=== PATIENT | male | born 1955 | race Caucasian/White ===

== ENCOUNTER 2017-12-13 09:39 | Outpatient (CLI) | payer BC, SELFPAY ==
--- NOTE | 2017-12-13 09:35 | DI.RAD_ITS ---
SYMPTOMS/DIAGNOSIS: PAIN LEFT HIP AND PELVIS: Two views. Comparison CT is 10/27/07. In the right hip there is moderate joint space narrowing and mild acetabular spurring. In the left hip there is moderate narrowing of the superior joint space. Spurring is seen at the acetabulum and the femoral head. No acute fracture or dislocation is seen. There are clips seen inferior to the pelvis likely reflecting prior vasectomy. The soft tissues are otherwise unremarkable. 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
== END 2017-12-13 09:59 ==
PROVIDERS: PCP Family Medicine; Visit Provider Orthopaedic Surgery
DX: M25.551 Pain in right hip (principal); M25.552 Pain in left hip; M16.0 Bilateral primary osteoarthritis of hip
CPT/HCPCS: 73502

== ENCOUNTER 2018-09-05 07:12 | Outpatient (CLI) | payer BC, SELFPAY ==
[2018-09-05 08:54] LABS: Anion Gap 9.2 mmol/L (3-11); BUN 19 mg/dL (7-18); CO2 29.8 mmol/L (21.0-32.0); CREATININE 1.15 mg/dL (0.70-1.30); Calcium 9.1 mg/dL (8.5-10.1); Chloride 102 mmol/L (98-107); Glucose 99 mg/dL (70-100); Potassium 3.6 mmol/L (3.5-5.1); Sodium 141 mmol/L (136-145)
== END 2018-09-05 07:32 ==
PROVIDERS: PCP Family Medicine; Visit Provider Family Medicine
DX: I10 Essential (primary) hypertension (principal)
CPT/HCPCS: 36415; 80048

== ENCOUNTER 2019-05-02 06:55 | Day surgery (SDC) | payer BC, SELFPAY ==
[2019-05-02 07:09] VITALS: BP 142/90; PULSE 73; RESP 16; TEMP 36.2; O2SAT 98
[2019-05-02] MEDS: Lactated Ringers 1,000 ML 80 ML IV (07:31)
--- NOTE | 2019-05-02 07:37 | HPE_ITS ---
Date of service: 05/02/19 Time of Service: 07:37 Assessment and Plan Assessment and plan (1) Sessile colonic polyp: Status: Acute Assessment and plan: I advised colonoscopy. The procedure was described including the risks of perforation with need for surgery or bleeding. Prep instructions discussed. Patient agrees to proceed. If indicated, internal hemorrhoid banding can be done. The risks of pain, bleeding, recurrence discussed. He agrees to proceed. (2) Hemorrhoids: Status: Acute History of Present Illness Narrative: 64 y/o male with history of HTN and hemorrhoids presents for colonoscopy. His last screening was in 2017, which was remarkable for sessile serrated and tubular adenomatous polyps. He denies a family history of colon cancer. He denies any changes in bowel habits. However of note he describes long standing hemorrhoids, which frequently bleed following BMs. Denies black tarry stools, abdominal pain, diarrhea or constipation. He denies constitutional symptoms. Denies use of marijuana or any other recreational or illegal drugs. He denies chest pain, palpitations, dyspnea or dyspnea with exertion. He walks and hikes 2-4 miles several times per week. He denies prior history or family history of adverse reactions or complications with anesthesia. Review of Systems All systems reviewed & are unremarkable except as noted in HPI and below PFSH Medical History Essential hypertension (Acute) Reza hematuria (Inactive) Hemorrhoids (Acute) intermittent, not currently active Prolapsed lumbosacral intervertebral disc (Inactive 01/16/13) Sessile colonic polyp (Acute 03/17/16) Surgical History BACK DISC SURGERY Colonoscopy - IV Sedation (03/17/16) History of spinal surgery (Inactive) Family History Mother Essential hypertension Breast cancer Father , AGE 42 No problems noted. Sister Essential hypertension Brother Essential hypertension Alcohol abuse Maternal Grandfather Essential hypertension Heart disease Stroke Maternal Grandmother Stroke Son Essential hypertension Daughter No problems noted. Uncle Colon cancer Uncle Colon cancer Uncle , 1960'S Colon cancer Son No problems noted. Social History Smoking/Tobacco Use Status: Former Tobacco Use Quit Date: 03/12/77 Second Hand Exposure: Yes Alcohol Intake: current Alcohol Intake frequency: a few times a month Alcohol type: beer Drug use: Never Substance use type: does not use Caregiver/Support person: No Household members: spouse Housing: house Communication Needs: None Pets and animals: No Sexually active: Yes Do you think of yourself as: straight/heterosexual Current gender identity: male What is your relationship status?: How often do you talk on the phone with friends or family?: three or more times per week How often do you get together with friends or relatives?: three or more times per week How often do you attend sabianism or protestant services?: 1-3 times per year Do you belong to any clubs or organized social groups?: yes Panel score (0-1 are the most socially isolated patients): 3 What type of physical activity do you participate in: walking Duration: 45-60 minutes/day Frequency: 3-4 times per week Jessica/Episcopal: [employer] Special jessica needs: No Seatbelt use: always Helmet use: Yes Helmet use: sometimes 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 Do you feel safe at home: Yes Do you feel safe in your relationship?: Yes Meds Home Medications and Allergies Home Medications Medication Instructions Recorded Confirmed Type lisinopril 10 mg tablet 10 mg PO DAILY #90 tab-cap 11/14/18 05/02/19 Rx meloxicam 15 mg tablet 15 mg PO DAILY #30 tab 03/13/19 05/02/19 Rx bisacodyl 5 mg tablet,delayed 5 mg PO ONCE #4 tab 03/28/19 05/02/19 Rx release polyethylene glycol 3350 17 238 g PO ONCE #238 gm 03/28/19 05/02/19 Rx gram/dose oral powder chlorthalidone 25 mg tablet 25 mg PO DAILY #90 tab-cap 04/08/19 05/02/19 Rx Allergies Allergy/AdvReac Type Severity Reaction Status Date / Time No Known Allergies Allergy Verified 05/01/19 08:03 Exam Const General: healthy appearing and not in acute distress Nutritional Appearance: well nourished Orientation: oriented x3 HENMT Head: normal to inspection Eyes Sclera: sclerae normal Pupils: PERRL Neck Neck: no lymphadenopathy Chest Breast inspection: normal inspection of the axillae Resp Effort & Inspection: normal respiratory effort Auscultation: clear to auscultation bilaterally and no wheezes Cardio Rate: regular rate Rhythm: regular rhythm GI Inspection: non-distended Palpation: soft, no hepatosplenomegaly, no hernias and nontender Skin General skin exam: no rashes or lesions noted Neuro General: alert Cognition: normal cognition Extrem General: normal to inspection Psych Affect: normal affect Attitude: cooperative Results Last Vital Signs Temp 97.2 F L 05/02/19 07:09 Pulse 73 05/02/19 07:09 Resp 16 05/02/19 07:09 BP 142/90 H 05/02/19 07:09 Pulse Ox 98 05/02/19 07:09
--- NOTE | 2019-05-02 07:52 | W.PM.DSUDISC ---
Discharge Plan Disposition Patient Disposition: HOME Condition: Good Discharge Details Reason For Visit: Colonoscopy Attending Provider: Patricia Dunbar Primary Care Provider: Thaddeus Carrion Home Meds and New Rx's Prescriptions: Continued lisinopril 10 mg tablet 10 mg PO DAILY Qty: 90 RF: 4 meloxicam 15 mg tablet 15 mg PO DAILY Qty: 30 RF: 3 chlorthalidone 25 mg tablet 25 mg PO DAILY Qty: 90 RF: 4 Discontinued polyethylene glycol 3350 17 gram/dose powder 238 g PO ONCE Qty: 238 RF: 0 bisacodyl [Dulcolax (bisacodyl)] 5 mg tablet,delayed release (DR/EC) 5 mg PO ONCE Qty: 4 RF: 0 Discharge Instructions Additional Instructions: Findings: No polyps were found. Internal hemorrhoids are present but not prominent enough to band at this time. Follow up: Plan for colonoscopy in 5 years due to the presence of polyps on your prior colonoscopy. Please call if you develop: fevers >101.5 Nausea or Vomiting Abdominal pain that is not transient DAY SURGERY UNIT POST COLONOSCOPY INSTRUCTIONS 1. Because there will be medication in your system for the next 24 hours, you may feel a little sleepy. Your coordination will be affected. Therefore: a. Do not drive or operate dangerous equipment for 24 hours. b. Do not drink alcohol beverages for 24 hours (not even beer). c. Plan to go home and rest for the day. 2. Generally there are no restrictions on your activity after a day or so has gone by, but you may feel a bit fatigued for a few days. 3 After you arrive home you may have a light meal and return to a normal diet as you can tolerate it without feeling sick to your stomach. 4. After surgery, you may feel pain or discomfort. This should be only transient, but if it persists please contact your doctor. 5. If there are any questions regarding the findings of your procedure, please feel free to contact your doctor. 6. If you are unable to contact your doctor with a problem, contact the hospital at [phone]. 7. Continue all your regular medications unless directed otherwise. I understand the above instructions and have no questions. Signature of Patient or Responsible Adult Escort Date/Time Name of Responsible Adult Escort Signature of Nurse Date/Time Activity:: Activity as Tolerated Diet:: As Tolerated Discharge Orders Discharge Orders: Discharge Order (Routine); Ordered 05/02/19 Ordered By: Patricia Dunbar DS: Diagnosis Discharge Diagnosis (1) Hemorrhoids: Status: Acute (2) Normal colonoscopy: Status: Acute
[2019-05-02 09:52] VITALS: BP 132/78; PULSE 59; RESP 17; TEMP 36.2; O2SAT 98
--- NOTE | 2019-05-02 10:44 | COLE_ITS ---
DATE OF PROCEDURE May 02, 2019 PREOPERATIVE DIAGNOSES 1. History of colon polyps. 2. Bleeding hemorrhoids. POSTOPERATIVE DIAGNOSES 1. Normal colon. 2. Internal hemorrhoids. PROCEDURE Colonoscopy. SURGEON Patricia Dunbar M.D. ANESTHESIA General. INDICATIONS This is a 64-year-old man, whose last colonoscopy in 2017 showed colon polyps. He presents for routin e followup. He has had bleeding from internal hemorrhoids in the past, but currently is asymptomatic. He will go months without symptoms and then have some bleeding for a few days in a row. We discussed possible internal hemorrhoid banding prior to the procedure. Due to his upcoming travel, we agreed t hat I would only band them if they were very prominent. PROCEDURE DESCRIPTION He was placed in the left Holt position. Propofol was titrated to sedation. Digital rectal examinatio n revealed no masses. The scope was inserted and retroflexed. He did have some mildly prominent inter nal hemorrhoids, but nothing that required banding today. The scope was straightened and then advance d to the cecum without difficulty. The ileocecal valve was briefly intubated to reveal a normal dist al ileum. His prep was excellent. The scope was slowly withdrawn with no abnormalities seen within t he ascending, transverse, descending, sigmoid colon or rectum. He tolerated the procedure well and wa s stable to Recovery. With is history of polyps. He will need a colonoscopy again in five years.
== END 2019-05-02 10:10 | disposition home or self-care (01) ==
PROVIDERS: PCP Family Medicine; Visit Provider Surgery
PROC: 0DJD8ZZ Inspection of Lower Intestinal Tract, Via Natural or Artificial Opening Endoscopic (ICD-10-PCS; CPT 45378; principal; 2019-05-02 08:15)
DX: Z12.11 Encounter for screening for malignant neoplasm of colon (principal); Z86.010 Personal history of colon polyps; K64.0 First degree hemorrhoids; I10 Essential (primary) hypertension
CPT/HCPCS: 45378; NC; J2250; J2704; J3010

== ENCOUNTER 2019-10-06 10:51 | Outpatient (CLI) | payer BC, SELFPAY ==
--- NOTE | 2019-10-06 09:15 | DI.RAD_ITS ---
EXAM: XR HIP LT COMPLETE AP PELVIS INDICATION: f/u L hip DJD. COMPARISON: CR XR hip LT complete AP pelvis from 12/13/2017 TECHNIQUE: 2D digital imaging was performed. FINDINGS: There is moderate narrowing of both hip joint spaces, left greater than right. There is prominent s purring at the left acetabulum and margin of the left femoral head. Milder spurring is seen involvin g the right hip. There is also some spurring at both greater trochanters. IMPRESSION: Moderate to severe degenerative changes. DATA REPOSITORY: RADIATION DOSE DELIVERED:
== END 2019-10-06 11:11 ==
PROVIDERS: PCP Family Medicine; Referring Provider Family Medicine; Visit Provider Student in an Organized Health Care Education/Training Program
DX: M16.12 Unilateral primary osteoarthritis, left hip (principal)
CPT/HCPCS: 73502

== ENCOUNTER 2019-10-13 02:01 | Outpatient (CLI) | payer BC, SELFPAY ==
[2019-10-13 10:14] LABS: HCT 48.1 % (40.0-50.0); HGB 16.3 g/dL (13.5-17.5); MCH 31.8 pg (27.0-33.0); MCHC 33.9 % (32.0-36.0); MCV 93.8 fL (80-95); MPV 9.6 fL (8.0-11.0); Platelet Count 234 10^3/uL (130-400); RBC 5.13 10^6/uL (4.36-5.78); RDW-SD 44.9 fL
[2019-10-13 11:02] LABS: Anion Gap 6.4 mmol/L (3-11); BUN 20 mg/dL (7-18); CO2 31.6 mmol/L (21.0-32.0); CREATININE 1.13 mg/dL (0.70-1.30); Chloride 104 mmol/L (98-107); Glucose 96 mg/dL (74-106); Potassium 4.1 mmol/L (3.5-5.1); Sodium 142 mmol/L (136-145)
== END 2019-10-13 02:21 ==
PROVIDERS: PCP Family Medicine; Visit Provider Student in an Organized Health Care Education/Training Program
DX: M16.12 Unilateral primary osteoarthritis, left hip (principal)
CPT/HCPCS: 36415; 80048; 85027; 86850; 86900; 86901

== ENCOUNTER 2019-10-13 08:00 | Outpatient (CLI) | payer BC, SELFPAY ==
[2019-10-14 20:50] LABS: COVID-19 RT-PCR Result NEGATIVE (Negative)
== END 2019-10-13 08:20 ==
PROVIDERS: PCP Family Medicine; Visit Provider Student in an Organized Health Care Education/Training Program
DX: M16.12 Unilateral primary osteoarthritis, left hip (principal)
CPT/HCPCS: U0003

== ENCOUNTER 2019-10-16 10:14 | Observation (INO) | payer BC, SELFPAY ==
[2019-10-16] VITALS (10 sets, daily range): BP systolic 116–166; BP diastolic 72–95; PULSE 52–62; RESP 12–18; TEMP 35.9–36.6; O2SAT 97–100
[2019-10-16] MEDS: Lactated Ringers 1,000 ML 80 ML IV ×2 (11:18→15:42)
[2019-10-16] MEDS: Acetaminophen 500 MG TAB 1000 MG PO (11:22)
[2019-10-16] MEDS: Celecoxib 200 MG CAP 400 MG PO (11:22)
[2019-10-16] MEDS: ceFAZolin 2 GM/50 ML BAG IVPB (12:00)
--- NOTE | 2019-10-16 12:05 | W.PM.DS.N ---
Date of service: 10/16/19 Time of Service: 18:16 DS: Diagnosis Discharge Diagnosis (1) Osteoarthritis of left hip: Status: Acute Discharge Plan Disposition Patient Disposition: HOME Condition: Good Discharge Details Reason For Visit: HIP TOTAL Admit Date/Time: 10/16/19 10:14 Admit Provider: Aayush Phillips Attending Provider: Aayush Phillips Primary Care Provider: Thaddeus Carrion Hospital Course Hospital Course: Patient was admitted to the medical/surgical floor following the procedure. The surgery was tolerated well without any notable medical, surgical, or anesthetic complications. Mobilization began postoperatively. He was voiding spontaneously. Vitals were stable. Physical therapy worked with the patient and was cleared for discharge home. No acute medical issues. Pain was controlled on oral regimen. Home Meds and New Rx's Prescriptions: New celecoxib 200 mg capsule 200 mg PO BID PRN (Reason: pain) Qty: 60 RF: 1 aspirin 81 mg tablet,delayed release (DR/EC) 81 mg PO BID Qty: 60 RF: 0 acetaminophen 500 mg tablet 1,000 mg PO Q8H PRN (Reason: pain) Qty: 90 RF: 3 pantoprazole 40 mg tablet,delayed release (DR/EC) 40 mg PO DAILY Qty: 30 RF: 0 docusate sodium [Colace] 100 mg capsule 100 mg PO BID PRNQty: 10 RF: 0 oxycodone 5 mg tablet 5 mg PO Q4H Qty: 15 RF: 0 Continued lisinopril 10 mg tablet 10 mg PO DAILY Qty: 90 RF: 4 chlorthalidone 25 mg tablet 25 mg PO DAILY Qty: 90 RF: 4 Discontinued meloxicam 15 mg tablet 15 mg PO DAILY Qty: 30 RF: 3 Discharge Instructions Additional Instructions: Dr. Phillips's Total Hip Discharge Instructions Activity: The most important activity is to walk. You should try to take short walks a few times a day. You have no restrictions on movement or positioning, but do not try to force what you do. You will find some stiffness and weakness with hip flexion (lifting your knee). Do not try to strengthen this too early, continue to practice walking and stairs and this will come. - Outpatient physical therapy can be helpful to help return you to a normal gait and improve your flexibility and strength. This can start around 2 weeks. For most patients, it?s not necessary. Usually this is determined at the time of discharge or at the first post-operative visit. - You should wear the AVTAR hose on both legs for 2 weeks. You may remove those at night. These prevent blood pooling and swelling. Dressing: Keep the surgical dressing in place for at least one week, although it may stay in place untill follow-up. It may get wet after 3 days but avoid soaking the dressing. If it gets wet, just lightly pat dry. Most people prefer to cover the dressing with some ClingWrap, Saran Wrap, to keep it dry. After the first week it may be removed if desired and then replaced with light gauze and tape or nothing. It is important to always keep some gauze or the dressing between skin folds, especially when you are sitting, so the incision is not folded over on itself at the belly fold. Medications: - You should take Tylenol and an anti-inflammatory Celebrex as your primary pain control medications - You have been prescribed a stronger pain medication Oxycodone for breakthrough pain, take as needed as prescribed. - You have also been prescribed a stomach acid reduction agent Pantoprozole to help reduce stomach acid and reflux. - You will be taking Aspirin 81mg twice a day for DVT prevention unless instructed otherwise. - If you have constipation you should take Colace or Miralax (both [id number]). It takes most people 3-4 days to have a bowel movement. Follow-up: 2 weeks. If you have any acute concerns or questions, please do not hesitate to contact the office at [phone]. You may contact Dr. Phillips with any questions after hours through the hospital at [phone] or on his cell phone at [phone]. Stand Alone Forms: Nursing Discharge Form Referrals: Aayush Phillips MD [ [facility] STAFF PHYSICIAN] - 10/30/19 11:00 am Activity:: Activity as Tolerated Equipment/Supplies:: Walker Diet:: As Tolerated Discharge Orders Discharge Orders: Discharge Order (Routine); Ordered 10/16/19 Ordered By: Aayush Phillips DS: Summary Status at Discharge Functional status at discharge: uses cane/walker Overall status at discharge: patient is progressing back to baseline Mental Status: mental status grossly normal Speech and Movement: speech and movement normal Mood: congruent mood Affect: normal affect Exam Psych Mental Status: mental status grossly normal Speech and Movement: speech and movement normal Mood: congruent mood Affect: normal affect DS: Data Vitals/I&O Vitals and I&O: Vital Signs Temperature 36.6 C 10/16/19 10:47 Pulse 62 10/16/19 10:47 Pulse Rhythm Regular 10/16/19 10:47 Respiratory Rate 16 10/16/19 10:47 Respiratory Effort 10/16/19 10:47 Respiratory Depth Normal 10/16/19 10:47 Respiratory Pattern Normal 10/16/19 10:47 Blood Pressure 138/78 10/16/19 10:47 Pulse Oximetry 97 10/16/19 10:47 Oxygen Delivery Method Room Air 10/16/19 10:47 Oxygen Flow Rate 0 10/16/19 10:47 Pain Level 1 10/16/19 10:47 Intake & Output 10/15/19 10/16/19 10/16/19 23:59 11:59 23:59 Weight 93.2 kg [facility] Medical History Essential hypertension (Acute) Reza hematuria (Inactive) Hemorrhoids (Acute) intermittent, not currently active Prolapsed lumbosacral intervertebral disc (Inactive 01/16/13) Sessile colonic polyp (Acute 03/17/16) Surgical History BACK DISC SURGERY Colonoscopy - IV Sedation (03/17/16) History of spinal surgery (Inactive) Family History Mother Essential hypertension Breast cancer Father , AGE 42 No problems noted. Sister Essential hypertension Brother Essential hypertension Alcohol abuse Maternal Grandfather Essential hypertension Heart disease Stroke Maternal Grandmother Stroke Son Essential hypertension Daughter No problems noted. Uncle Colon cancer Uncle Colon cancer Uncle , 1960'S Colon cancer Son No problems noted. Social History Smoking/Tobacco Use Status: Former Tobacco Use Quit Date: 03/12/77 Second Hand Exposure: Yes Alcohol Intake: current Alcohol Intake frequency: a few times a month Alcohol type: beer Drug use: Never Substance use type: does not use Caregiver/Support person: No Household members: spouse Housing: house Communication Needs: None Pets and animals: No Sexually active: Yes Do you think of yourself as: straight/heterosexual Current gender identity: male What is your relationship status?: How often do you talk on the phone with friends or family?: three or more times per week How often do you get together with friends or relatives?: three or more times per week How often do you attend gnosticism or mandaen services?: 1-3 times per year Do you belong to any clubs or organized social groups?: yes Panel score (0-1 are the most socially isolated patients): 3 What type of physical activity do you participate in: walking Duration: 45-60 minutes/day Frequency: 3-4 times per week Jessica/Quaker: [employer] Special jessica needs: No Seatbelt use: always Helmet use: Yes Helmet use: sometimes 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
[2019-10-16] MEDS: Bupivacaine 0.25% Pres-Free 30 ML VIAL (12:43)
[2019-10-16] MEDS: Ketorolac 30 MG/ML VIAL (12:43)
--- NOTE | 2019-10-16 13:45 | DI.RAD_ITS ---
EXAM: XR HIP LT IN OR CLINICAL HISTORY: Anterior Left hip TECHNIQUE: 2D and realtime digital imaging was performed. Fluoroscopy was provided in the OR COMPARISON: No exams were available for comparison FINDINGS: C-arm fluoroscopy was utilized by Dr. Phillips during placement total hip joint replacement on the le ft. Hard copies show the components to be well seated. Fluoro time, 76 seconds. IMPRESSION: RADIATION DOSE DELIVERED: Total DLP
--- NOTE | 2019-10-16 13:58 | ROE_ITS ---
Date of service: 10/16/19 Time of Service: 13:58 Operative Note Operative Note DATE OF PROCEDURE: 10/16/19 PRE-OP DIAGNOSIS: Left Hip Osteoarthritis POST-OP DIAGNOSIS: same PROCEDURE: Left Anterior Total Hip Arthroplasty SURGEON: Aayush Phillips IMPREGNATING MACHINE OPERATOR: Ga Dominguez ANESTHESIA: spinal ESTIMATED BLOOD LOSS: 250 PATHOLOGY: none sent TOURNIQUET TIME: 0 COMPLICATIONS: None Patient was transported to: PACU Patient's condition: stable Implants: 1. Depuy [place] Acetabular Component, 56mm 2. Depuy Acetabular Liner, 99y78ic 3. Depuy Corail High Offset Femoral Stem, Size 11 4. Depuy Altrx Ceramic Femoral Head, Size 32+5mm Indications: I have seen Joshua in clinic for symptoms of hip arthritis, confirmed with radiographic findings. Joshua has exhausted nonoperative methods and was having significant limitations in daily function and desired better function and less pain. I discussed the technical details of a hip replacement. I explained the risks of the procedure to include, but not limited to, bleeding, infection, pain, stiffness, fracture, damage to nerves and vessels, damage to muscles and tendons, loosening, instability, leg length inequality, need for repeat procedure, blood clot and cardiopulmonary demise. Despite these risks, Joshua elected to proceed. Findings: There was significant signs of arthritis throughout the hip. Procedure Description: Joshua was greeted in the preoperative holding area where the correct side was identified and marked. The consent was reviewed with the patient and signed. The history and physical was updated. All questions were answered. Joshua was taken back to the operating room. A spinal anesthestic was then administered. The patient was placed into the supine position on the operating room table. The patient was then positioned onto the ARCH table. Both feet were wrapped with Webrill cotton wrap along with Coban. The feet were placed in specialized boots for the ARCH table, well seated within the boot and secured. SCDs were applied. The patient was then slid down onto a peroneal post and the nonoperative leg was secured in a leg hodges attached to the table. The operative side was placed into the ARCH table attachment and bed height and positioning was secured. A preoperative AP pelvis was obtained to serve as a reference for determining leg lengths. Prophylactic antibiotics in the form o f Cefazolin were administered. 1g of Tranxemic Acid was given intravenously within 30 minutes of incision. The left leg was then prepped with Chloraprep and draped in a standard fashion. A second prep with Chloraprep was performed prior to placement of a shower-curtain type drape with Iodine impregnated skin protection. A timeout to confirm correct identity, side and site, procedure, allergies, anesthesia, and medical concerns was performed. An obliquely oriented incision was made starting lateral to the ASIS and running distal over the Tensor Fascia Radha (TFL) muscle belly toward the fibular head, approximately 10cm. The skin and soft tissue was dissected sharply, through Shanae?s fascia, and to the fascia of the TFL. With the fascia and superior border of the IT band identified, the fascia was incised with a new knife just above any perforators from the IT band. The TFL muscle belly was bluntly dissected away from the fascia and moved laterally. The fat between TFL and rectus was identified to ensure the dissection was not within the TFL. Blunt dissection created space between abductors and the capsule and retractor was placed over the lateral femoral neck. The fibers of the rectus femoris tendon were identified and these were freed from the anterior capsule. A second cobra retractor was placed around the medial femoral neck. The TFL was further retracted laterally to show the deep fascia. Careful dissection through this layer identified three main crossing vessels of the lateral femoral circumflex. These were cauterized in multiple locations and then cut without any noticeable bleeding. The TFL was further released bluntly from the deep fascia to expose anterior hip capsule and fat The Tony orthopaedic retractor was then placed beneath the TFL and against sartorius and medial soft tissues to protect and retract the soft tissues. A T-capsulotomy was then performed starting at the superior lateral acetabulum and moving distally to the intertrochanteric ridge. These capsular flaps were tagged with a No. 1 Ethibond and elevated from within. The capsular flaps were released to the shoulder of the lateral neck and to the lesser trochanter to g kennedy excellent visualization of the proximal femur. A neck osteotomy was performed using an oscillating saw based on preoperative templates. This cut started in the shoulder and of the lateral neck and exited medially. The saw was at all times directed medially to avoid injury to the greater trochanter. 6cm of traction was applied to the leg and the osteotomy opened. The femoral head was removed with a corkscrew, making sure to protect the TFL on its exit. This was measured on the back table to determing the starting reamer size. Portions of the rectus obscuring visualization were mini mary lou elevated off the superior acetabulum. An anterior retractor was placed over the anterior wall between capsule and labrum and attached to the Gripper retraction system. A posterior retractor was placed similarly. This provided excellent visualization. The contents of the cotyloid fossa were removed with electrocautery and the labrum was removed with a knife. There was a notable floor osteophyte. There was significant chondromalacia of the superior acetabulum. Acetabular reaming began with a 52mm reamer. This first reaming was directed anterior to posterior and medial to get down to the true floor. This was inspected and reamed until the true floor was reached. The anterior retractor was then released and entry and exit was provided by traction on the capsular flaps. I then reamed sequentially up to a 56mm reamer where good fit was obtained. The larger reamers were oriented based on anatomical reference of the anterior and lateral pedroza to ensure proper abduction and anteversion. Positioning and size was confirmed with the fluoroscopy. A 56mm Depuy [place] acetabular component was selected. The acetabulum was reamed around the periphery with the selected acetabular size to prevent a rim fit. The deep tissues were irrigated. The acetabular component was then impacted in a position of about 40-45 degrees of abduction and 15-20 degrees of anteversion, using the patient?s anatomy as the ultimate landmark. Fluoroscopy was used to confirm this. There was excellent propagation worker of the acetabular component and the inserting handle was removed. The acetabular liner, Depuy [id number] polyethylene liner, was inserted and lined up with the tines of the acetabular component. There was no soft tissue interposition. The liner was then impacted into position and confirmed to be well-seated. A portion of the kash-articular cocktail was then injected around the acetabulum into the capsule and periosteum. This cocktail consisted of 50cc of 0.25% Bupivicaine and 20cc of Exparel, expanded to a total of 120cc. Traction was released from the femur. The leg was rotated to 120 degrees. Any remaining medial capsule was released until the lesser trochanter was easily palpable. A Grant retractor was placed medially. The lateral capsule was further released into the shoulder to allow access to the greater trochanter. A Grant retractor was placed over the greater trochanter which allowed the trochanter to flip in front of the capsule for excellent exposure. The leg was brought down into maximal extension and 20 degrees of adduction while ensuring t here was no impingement on the acetabulum. Any remnant capsule within the trochanter was released. Piriformis and obturator externis were identified and protected. There was excellent access to the proximal femur. The lateral neck remnant was removed with a rongeur. A blunt canal probe was used to identify the canal and trajectory for later broaching. A box osteotome initiated the broach course. A small curved rasp and a curved curette were used to work laterally. Broaching then began with a size 8 Corail broach. This was inserted manually around the trochanter and into the canal before mallet blows. The broach was seated to a few millimeters below the cut level based on the neck cut and the preoperative template. Sequential broaching was continued with the FarmLinkse pneumatic broaching device until a tight fit was obtained with good rotational control of the femur. A trial high offset neck was inserted along with a +5 trial head. The leg was brought out of extension and adduction and then reduced with traction and internal rotation. The leg was stable anteriorly in a position of 30 degrees of extension and 90 degrees of external rotation. Fluoroscopy was used to ensure there was no fracture and the stem was seated well. Leg lengths were checked with an AP pelvis and pelvic reference points. Zenbox navigation system was used to confirm appropriate positioning and leg length and offset. It was clear from the x-ray and the JointPoint system that there was too much leg length, so the hip was dislocated and the stem was advanced. The trial was once again performed and this showed much better recreation of offset and leg length. Once content with the desired offset and leg lengths, the leg was brought back into extension, external rotation and adduction. The periosteum and surrounding tissue was injected with remaining portion of the kash-articular cocktail. The proximal femur was irrigated as well as the deep tissues. The Depuy Corail High Offset stem, size 11, was then manually inserted into the proximal femur making sure to control rotation. It was then malleted into position with light blows, giving breaks to allow bone expansion and decrease risk of fracture. The selected Depuy Altrx Ceramic Head, size 36+5mm, was then placed onto the clean and dry trunnion and secured with impaction onto the tapered fit. The leg was brought back out of extension and adduction and reduced with traction and internal rotation. Stability was confirmed with no shuck at 90 degrees of external rotation and 30 degrees of extension. No impingement through range of motion arc. Final x-ray images were obtained with fluoroscopy to confirm adequate positioning and no intraoperative fracture. The deep tissues were thoroughly irrigated with Irrisept chlorhexadine solution. The second dose of TXA 1g was administered intravenously.The capsule was then reapproximated with the previously placed Ethibond sutures. The TFL fascia was finally closed with a No. 2 Stratafix, barbed suture. Deep tissues were then reapproximated with 0 Vicryl and a running 2-0 Vicryl. The skin was closed with a running 4-0 Monocryl in a subcuticular fashion. This was reinforced with skin glue. A Mepilex silver dressing was applied. At the end of the case, all counts were correct. Joshua was transferred to the hospital bed without difficulty and suffering no apparent complication. Joshua has a good prognosis. Physical therapy will start today and without restrictions, weight-bearing as tolerated. Aspirin 81mg BID will be used for DVT prophylaxis.
[2019-10-16] MEDS: fentaNYL 100 MCG/2 ML VIAL IVP ×2 (14:30→14:39)
[2019-10-16] MEDS: HYDROmorphone 2 MG/ML VIAL 0.5 MG IVP (15:41)
--- NOTE | 2019-10-16 17:48 | IN_ITS ---
Date of service: 10/16/19 PT Notes Visit Reasons: HIP TOTAL Physical Therapy Inpatient Initial Evaluation Date: 10/16/2019 Referring Doctor: Aayush Phillips MD PT Orders: PT CONSULT: Status post surgery status post left JANELL Precautions: Fall. Standard. WBAT on L LE. Patient Profile/Admitting Diagnosis: Rxe is a 64-year-old male with primary unilateral right is of the right hip and is status post right total hip arthroplasty on postoperative day 0. PMHX: Medical History Essential hypertension (Acute) Reza hematuria (Inactive) Hemorrhoids (Acute) intermittent, not currently active Prolapsed lumbosacral intervertebral disc (Inactive 01/16/13) Sessile colonic polyp (Acute 03/17/16) Surgical History BACK DISC SURGERY Colonoscopy - IV Sedation (03/17/16) History of spinal surgery (Inactive) Social History/Home Situation: Lives with in a two-story home with 4 steps to enter and rails on both sides with another set of stairs to the second floor of the house where the bedroom is with rails on both sides as well. Independent with all ADLs without the need for an assistive ambulatory device nor adaptive equipment. Equipment Owned/DME: None Subjective: Reports 2/10 pain in the left frontal and right hip is okay because that subsided with ambulation activity. Denies headache, chest pain, and dizziness throughout PT session. Objective: General Observation: Mepilex Ag over her left hip. TEDS on both legs. IV the access in the right UE. Mental Status: Alert and oriented x 4 Pain: 2/10 in the left hip ROM: Right Upper Extremity: Shoulder Flexion WFL. Shoulder abduction WFL. Elbow flexion WFL. Wrist flexion WFL. Opening and closing of hand WFL. Left Upper Extremity: Shoulder Flexion WFL. Shoulder abduction WFL. Elbow flexion WFL. Wrist flexion WFL. Opening and closing of hand WFL. Right Lower Extremity: Hip flexion WFL. Hip abduction WFL. Knee flexion WFL. Ankle dorsiflexion WFL. Ankle plantarflexion WFL. Left Lower Extremity: Hip flexion WFL. Hip abduction WFL. Knee flexion WFL. Ankle dorsiflexion WFL. Ankle plantarflexion WFL. Strength: Right Upper Extremity: Shoulder flexors 5/5. Shoulder abductors 5/5. Elbow flexors 5/5. Elbow extensors 5/5. Integrity Specialist strong. Left Upper Extremity: Shoulder flexors 5/5. Shoulder abductors 5/5. Elbow flexors 5/5. Elbow extensors 5/5. Integrity Specialist strong. Right Lower Extremity: Hip flexors 5/5. Hip abductors 5/5. Knee flexors 5/5. Knee extensors 5/5. Ankle dorsiflexors 5/5. Ankle plantarflexors 5/5. Left Lower Extremity:Hip flexors 4/5. Hip abductors 4/5. Knee flexors 5/5. Knee extensors 4/5. Ankle dorsiflexors 5/5. Ankle plantarflexors 5/5. Sensation: Intact as to pain and pressure on bilateral lower extremities. Bed Mobility/Transfers: Rolling independent Supine to sit independent Sit to supine independent Sit to stand SBA Stand to sit SBA Bed to chair SBA Chair to bed SBA Gait: Tunde tolerated level surface ambulation of 150 feet x 2 using the FWW with SBA, step-through gait pattern with decreased luh. Managed up-and-down six 4-inch step and four 6-inch while holding onto bilateral with no difficult difficulty requiring just standby assist from PT. Balance: Static Sitting: Normal Dynamic Sitting: Normal Static Standing: Fair Dynamic Standing: Fair Special Tests: Mobility Limitations Standardized Measure [facility] AM-PAC 6 clicks Basic Mobility Inpatient Short Form: Raw Score: 24 CMS Score: 0% deficit Informed Consent/Education: Patient instructed in purpose of PT consult and p yadi of care. Assessment: Rex demonstrates functional mobility decline which requires the use of a front wheeled walker for all mobility ADL performance to facilitate independence this fall risk at home, difficulty with walking, impaired balance, and pain in the L hip due to postoperative status. Patient presents with clinical signs and symptoms consistent with current/admitting diagnoses that have resulted to mobility limitations, gait instability, generalized weakness, and impairment of motor control as demonstrated by the following impairment level findings: 1. Decreased strength to left hip major muscle groups 2. Impaired sitting/standing balance 3. Impaired activity tolerance Impairments are contributing to the following functional limitations: 1. Inability to safely ambulate without assistive device and physical assistance 2. Increase completion time for mobility ADL performance 3. Increased fall risk 4. Inability to negotiate steps alone safely Patient is assessed as a 60835 moderate complexity based on the following: History: 64-year-old male with impairment level findings, functional limitations, and past medical history as indicated above Examination: Demonstrable impairment in strength, balance, and mobility level with underlying impairments and functional limitations as documented above Presentation:Evolving Decision Makin moderate complexity Goals: N/A. PT consult 1 treatment session only. Plan of Care/Treatment Plan: N/A. PT consult 1 treatment session only. DISCHARGE RECOMMENDATIONS: Outpatient PT services in order to facilitate return to premorbid independent mobility level without an assistive device. TREATMENT CODE/TIME: 47904 x 30 minutes beginning at 17:12 PM. Thank you for the opportunity to participate in the care of this patient. Hannah Guthrie PT, DPT, CLT [facility] [place], [place]
== END 2019-10-16 18:50 | disposition home or self-care (01) ==
LOC: PDS 14:17 → MS 14:18
PROVIDERS: Admitting Provider Student in an Organized Health Care Education/Training Program; PCP Family Medicine; Visit Provider Student in an Organized Health Care Education/Training Program
PROC: 0SRB04A Replacement of Left Hip Joint with Ceramic on Polyethylene Synthetic Substitute, Uncemented, Open Approach (ICD-10-PCS; CPT 27130; principal; 2019-10-16 12:00)
DX: M16.12 Unilateral primary osteoarthritis, left hip (principal); M25.562 Pain in left knee; Z96.642 Presence of left artificial hip joint; I10 Essential (primary) hypertension
CPT/HCPCS: 27130; 20985; C1776; 97162; NC; 73501; G0378; J0131; J0690; J1100; J1885; J2001; J2405; J3010

== ENCOUNTER 2019-10-30 11:08 | Outpatient (CLI) | payer BC, SELFPAY ==
--- NOTE | 2019-10-30 11:00 | DI.RAD_ITS ---
EXAM: XR HIP LT COMPLETE AP PELVIS INDICATION: 1st post op. COMPARISON: CR XR HIP LT COMPLETE AP PELVIS from 10/06/2019 XR HIP LT IN OR from 10/16/2019 TECHNIQUE: 2D digital imaging was performed. FINDINGS: A left hip prosthesis is seen. The alignment appears unchanged when compared with intraoperative diana ges. No abnormal bony lucencies are seen. There is stable degenerative changes of left hip. DATA REPOSITORY: RADIATION DOSE DELIVERED:
== END 2019-10-30 11:28 ==
PROVIDERS: PCP Family Medicine; Referring Provider Family Medicine; Visit Provider Student in an Organized Health Care Education/Training Program
DX: Z96.642 Presence of left artificial hip joint (principal)
CPT/HCPCS: 73502

== ENCOUNTER 2020-08-06 11:37 | Outpatient (CLI) | payer BC, SELFPAY ==
--- NOTE | 2020-08-06 11:15 | DI.RAD_ITS ---
Exam(s) XR SHOULDER RT COMPLETE 2+V EXAM: XR SHOULDER RT COMPLETE 2+V CLINICAL HISTORY: right shoulder pain TECHNIQUE: COMPARISON: No exams were available for comparison FINDINGS: Three views were obtained. There are moderate hypertrophic degenerative changes of the acromioclavic ular joint. The cartilaginous joint space of the glenohumeral joint appears fairly well maintained. There are prominent marginal osteophytes of the glenoid and to a lesser degree the humeral head. No other significant bony abnormality seen. There may be faint calcification in the soft tissues assoc iated with the distal supraspinatus tendon suggesting a calcific peritendinitis. IMPRESSION: Hypertrophic degenerative changes as described above. Possible supraspinatus calcific peritendiniti s. RADIATION DOSE DELIVERED: Total DLP
--- NOTE | 2020-08-06 11:30 | DI.RAD_ITS ---
Exam(s) XR CERVICAL SPINE COMP 4-5V EXAM: XR CERVICAL SPINE COMP 4-5V CLINICAL HISTORY: right sided neck pain TECHNIQUE: COMPARISON: No exams were available for comparison FINDINGS: Five views were obtained. There is mild narrowing of the intervertebral disc spaces at C5-6 and C6-7 . There are very prominent endplate hypertrophic changes at these levels as well, moderate endplate hypertrophic changes noted anteriorly at C4 inferior endplate. Neural foramina appear mildly narrowed bilaterally from C4-5 through C6-7. No other significant bony abnormality seen. No fracture, no gross erosive or destructive process IMPRESSION: Degenerative changes as described above. RADIATION DOSE DELIVERED: Total DLP
== END 2020-08-06 11:38 | disposition home or self-care (01) ==
PROVIDERS: PCP Family Medicine; Visit Provider Physician Assistant
DX: M54.2 Cervicalgia (principal); M50.322 Other cervical disc degeneration at C5-C6 level; M50.323 Other cervical disc degeneration at C6-C7 level; M25.511 Pain in right shoulder; M13.811 Other specified arthritis, right shoulder
CPT/HCPCS: 72050; 73030

== ENCOUNTER 2020-10-15 11:04 | Outpatient (CLI) | payer BC, SELFPAY ==
--- NOTE | 2020-10-15 11:11 | DI.RAD_ITS ---
Exam(s) XR HIP LT AP LAT ONLY EXAM: XR HIP LT AP LAT ONLY CLINICAL HISTORY: ANNUAL F/U L JANELL TECHNIQUE: COMPARISON: CR XR HIP LT COMPLETE AP PELVIS from 10/30/2019 FINDINGS: Two views were obtained. There is a total hip joint replacement in position. There is a question of slightly increased lucency adjacent to the femoral component of the prosthesis at the level of the g reater trochanter raising the possibility of loosening. This was not present on prior examination of October 2019. IMPRESSION: Question loosening femoral component of prosthesis, please correlate clinically. RADIATION DOSE DELIVERED: Total DLP
== END 2020-10-15 11:05 | disposition home or self-care (01) ==
LOC: DIORS 11:04
PROVIDERS: PCP Family Medicine; Referring Provider Family Medicine; Visit Provider Student in an Organized Health Care Education/Training Program
DX: Z96.642 Presence of left artificial hip joint (principal)
CPT/HCPCS: 73502

== ENCOUNTER 2021-01-24 07:52 | Emergency (ER) | payer MEDICARE, BC, SELFPAY ==
[2021-01-24 08:02] VITALS: BP 176/81; PULSE 71; RESP 16; TEMP 36.3; O2SAT 98
[2021-01-24 08:24] LABS: Bilirubin Negative (Negative); Blood Trace-intact (Negative); Clarity Clear (Clear); Glucose Negative (Negative); Ketones Negative (Negative); Leukocyte Esterase Negative (Negative); Nitrite Negative (Negative); Specific Gravity 1.025 (1.005-1.025); Urobilinogen 0.2 EU/dL (Up TO 0.2)
[2021-01-24 08:39] LABS: Bacteria Negative HPF (Negative); Crystals Negative HPF (Negative); Epithelial Cells Rare HPF (Negative); RBC 0-2 HPF (0-2); WBC Negative HPF (0-5)
[2021-01-24 08:40] LABS: C & S Indicated? No; Casts Negative LPF (Negative); Mucus Trace (Negative)
--- NOTE | 2021-01-24 08:45 | DI.CT_ITS ---
Exam(s) CT RENAL COLIC WO EXAM: CT RENAL COLIC WO CLINICAL HISTORY: Hematuria, left back and flank pain. TECHNIQUE: Imaging Protocol: Axial computed tomography images with coronal and sagittal reformatted images were created and reviewed. CONTRAST MATERIAL: Intravenous: none Oral: None COMPARISON: No exams were available for comparison FINDINGS: VISUALIZED LUNG BASES: No nodules nor pleural effusions evident. ABDOMEN: There is no ascites. LIVER: There are no obvious focal hepatic lesions evident of this noninfused study. GALLBLADDER/BILIARY: No obvious gallbladder pathology. CBD is not dilated. PANCREAS: No evidence of pancreatic mass nor dilatation of the pancreatic duct. SPLEEN: Spleen is not enlarged. No obvious intrasplenic lesions. ADRENALS: There are no significant adrenal masses. KIDNEYS:No cysts evident. There is a tiny nonobstructive calculus in the lower pole of the right kidn ey. No calculi seen within the left kidney. Ureters are not dilated. No calculi seen within the no ndistended urinary bladder. Bladder is somewhat difficult to evaluate because of beam hardening duyen fact from left hip prosthesis.. ABDOMINAL AORTA: Abdominal aorta is not enlarged. LYMPH NODES: There is no retroperitoneal nor paraaortic adenopathy. ABDOMINAL WALL: No evidence of significant anterior abdominal wall nor inguinal hernia. GI: There is no evidence of bowel obstruction, free air, nor abscess. PELVIS: LYMPH NODES: There is no intrapelvic nor inguinal adenopathy. GI: No evidence of appendicitis.No evidence of sigmoid diverticulitis. URINARY BLADDER: No calculi nor obvious masses evident REPRODUCTIVE: Prostate size upper normal. Prostate calcifications noted. OSSEOUS: No significant osseous lesions. Left hip prosthesis.. Degenerative changes in the right hip. Partial ankylosis of the sacroiliac join ts. No lytic osseous lesions evident. IMPRESSION: 1. There are no obvious obstructing calculi in the urinary tracts. There is a nonobstructive 1 millim eter calculus in the right kidney lower pole. Slight prominence of upper left collecting system is no breonna. Cannot identify a radiopaque calculus in the nondilated left ureter. Left ureterovesical junctio n is somewhat obscured by beam hardening artifact from the ipsilateral left hip prosthesis. There are calcifications in this region but these appear to be phleboliths. 2. Left hip prosthesis. 3. No ascites. RADIATION DOSE DELIVERED: 820.31mGy.cm Total DLP DATA REPOSITORY: All CT scans at this facility are submitted to the National Radiology Data Registry (NRDR) Dose Index Registry (DIR) with the [employer] (ACR). RADIATION OPTIMIZATION: All CT scans at this facility use at least one of these dose optimization te chniques: automated exposure control; mA and/or kV adjustment per patient size (includes targeted exa ms where dose is matched to clinical indication); or iterative reconstruction.
[2021-01-24] MEDS: Normal Saline 1,000 ML 1000 ML IV (08:55)
[2021-01-24] MEDS: Ketorolac 30 MG/ML VIAL IVP (09:05)
[2021-01-24 09:16] LABS: Abs Immature Grans 0.02 10^3/uL (0.0-0.06); Absolute Basophil Count 0.06 10^3/uL (0.0-0.2); Absolute Eosinophil Count 0.04 10^3/uL (0.0-0.7); Absolute Lymphocyte Count 2.25 10^3/uL (1.2-3.4); Absolute Neutrophil Count 4.49 10^3/uL (1.2-6.7); Basophils % 0.8; Eosinophils % 0.5; HGB 17.1 g/dL (13.5-17.5); Immature Grans % 0.3; Lymphocytes % 30.6; MCHC 34.2 % (32.0-36.0); MCV 93.5 fL (80-95); Monocytes % 6.8; Nucleated RBC 0 %; Platelet Count 242 10^3/uL (130-400); RBC 5.35 10^6/uL (4.36-5.78); RDW 12.2 % (11.8-14.1); RDW-SD 42.4 fL; WBC 7.36 10^3/uL (4.4-10.8)
[2021-01-24 09:38] LABS: ALT 30 U/L (16-63); AST 21 U/L (15-37); Albumin 4.1 g/dL (3.4-5.0); Alkaline Phosphatase 76 U/L (46-116); Anion Gap 8.5 mmol/L (3-11); BUN 18 mg/dL (7-18); Bilirubin, Total 0.7 mg/dL (0.2-1.0); CO2 32.5 mmol/L (21.0-32.0); CREATININE 1.1 mg/dL (0.70-1.30); Chloride 101 mmol/L (98-107); Glucose 104 mg/dL (74-106); Lipase 62 U/L (73-393); Potassium 3.5 mmol/L (3.5-5.1); Sodium 142 mmol/L (136-145); Total Protein 7.8 g/dL (6.4-8.2)
[2021-01-24] MEDS: HYDROmorphone 2 MG/ML VIAL 1 MG IVP (10:11)
--- NOTE | 2021-01-24 11:08 | ED.GENADUL_ITS ---
Discharge Plan Disposition Patient Disposition: HOME Condition: Improving Discharge Details Clinical Impression: Flank pain Primary Care Provider: Abbie Castano ED Provider: Preet Kat Home Meds and New Rx's Prescriptions: New oxycodone-acetaminophen [Percocet] 5-325 mg tablet 1 tab PO Q8H PRNQty: 8 RF: 0 Continued lisinopril 10 mg tablet 10 mg PO DAILY Qty: 90 RF: 4 chlorthalidone 25 mg tablet 25 mg PO DAILY Qty: 90 RF: 4 celecoxib 200 mg capsule 200 mg PO BID PRN (Reason: pain) Qty: 60 RF: 3 acetaminophen 500 mg tablet 1,000 mg PO Q8H PRN (Reason: pain) Qty: 90 RF: 3 Discharge Instructions Instructions: Flank Pain (ED) Additional Instructions: Your laboratory values do not reveal any obvious emergent process. CT imaging is inconclusive but raises a suspicion for a small left-sided kidney stone. Percocet as directed, this medication may cause drowsiness and/or constipation. I do recommend taking [id number] stool softener while on this medication. Plenty of fluids to avoid dehydration to help move along any potential stone. Please watch for new or worsening symptoms and return to the ER for any concerns. I do recommend reaching out your primary care provider for your ongoing symptoms and need for outpatient reevaluation. I am also giving you a referral to urology, I recommend contacting your office today or tomorrow to discuss your ER visit need for outpatient reevaluation. Referrals: Melania Biggs, LEA [NURSE PRACTITIONER] - Medical Decision Making 65-year-old gentleman with left back and flank pain over the past 10 days. Clinically I am unable to reproduce the pain, patient states it feels deeper. Difficult to ascertain if this is truly musculoskeletal versus potential intra- abdominal pathology. Clinically he appears well, nontoxic. Plan is to obtain IV access, routine laboratory values, renal colic CT and give IV fluids and Toradol. Patient reports no significant improvement with IV Toradol. Laboratory values reveal white blood cell count of 7.36 hemoglobin 17.1 hematocrit 50 platelet count 242. Sodium 143 potassium 3.5 creatinine 1.1 with a GFR greater than 60. Glucose 104. Calcium 9.0, LFTs unremarkable, lipase 62. Urinalysis trace blood otherwise unremarkable laboratory values grossly benign CT imaging does not reveal any obvious emergent process, cannot rule out a small left-sided renal stone. Work-up overall is benign, no emergent process identified. CT is indeterminate for potential stone. Patient made aware of findings. He will be given a single dose of IV Dilaudid and reassess. Patient reports that the Dilaudid has essentially resolved any discomfort he was feeling. Plan is to provide a short-term dose of Percocet, encourage adequate hydration, gentle stretching, cool and/or warm compresses. Will recommend that he follows up with his primary care provider but I will also give a full referral to our urology team given his right-sided stone, mild left prominence of his collecting system, potential stone. Patient is agreeable to this plan and has no additional questions or concerns. Standard discharge and return precautions provided This documentation was generated using [employer] system, please disregard any oddities of phrase or misspellings. Medical Records Medical records reviewed: Yes I reviewed the patient's medical records. Imaging Data Radiologic Study: Attestation: I personally reviewed and interpreted this imaging study as follows: Imaging: CT Scan Radiologist's impression: Exam(s) CT RENAL COLIC WO EXAM: CT RENAL COLIC WO CLINICAL HISTORY: Hematuria, left back and flank pain. TECHNIQUE: Imaging Protocol: Axial computed tomography images with coronal and sagittal reformatted images were created and reviewed. CONTRAST MATERIAL: Intravenous: none Oral: None COMPARISON: No exams were available for comparison FINDINGS: VISUALIZED LUNG BASES: No nodules nor pleural effusions evident. ABDOMEN: There is no ascites. LIVER: There are no obvious focal hepatic lesions evident of this noninfused study. GALLBLADDER/BILIARY: No obvious gallbladder pathology. CBD is not dilated. PANCREAS: No evidence of pancreatic mass nor dilatation of the pancreatic duct. SPLEEN: Spleen is not enlarged. No obvious intrasplenic lesions. ADRENALS: There are no significant adrenal masses. KIDNEYS:No cysts evident. There is a tiny nonobstructive calculus in the lower pole of the right kidney. No calculi seen within the left kidney. Ureters are not dilated. No calculi seen within the nondistended urinary bladder. Bladder is somewhat difficult to evaluate because of beam hardening artifact from left hip prosthesis.. ABDOMINAL AORTA: Abdominal aorta is not enlarged. LYMPH NODES: There is no retroperitoneal nor paraaortic adenopathy. ABDOMINAL WALL: No evidence of significant anterior abdominal wall nor inguinal hernia. GI: There is no evidence of bowel obstruction, free air, nor abscess. PELVIS: LYMPH NODES: There is no intrapelvic nor inguinal adenopathy. GI: No evidence of appendicitis.No evidence of sigmoid diverticulitis. URINARY BLADDER: No calculi nor obvious masses evident REPRODUCTIVE: Prostate size upper normal. Prostate calcifications noted. OSSEOUS: No significant osseous lesions. Left hip prosthesis.. Degenerative changes in the right hip. Partial ankylosis of the sacroiliac joints. No lytic osseous lesions evident. IMPRESSION: 1. There are no obvious obstructing calculi in the urinary tracts. There is a nonobstructive 1 millimeter calculus in the right kidney lower pole. Slight prominence of upper left collecting system is noted. Cannot identify a radiopaque calculus in the nondilated left ureter. Left ureterovesical junction is somewhat obscured by beam hardening artifact from the ipsilateral left hip prosthesis. There are calcifications in this region but these appear to be phleboliths. 2. Left hip prosthesis. 3. No ascites. Lab Data Lab results reviewed: Yes I reviewed the patient's lab results. Labs: Laboratory Tests Range/Units 01/24/21 01/24/21 01/24/21 08:10 09:00 09:00 WBC (4.4-10.8) 10^3/uL 7.36 RBC (4.36-5.78) 10^6/uL 5.35 Hgb (13.5-17.5) g/dL 17.1 Hct (40.0-50.0) % 50.0 MCV (80-95) fL 93.5 MCH (27.0-33.0) pg 32.0 MCHC (32.0-36.0) % 34.2 RDW (11.8-14.1) % 12.2 Plt Count (130-400) 10^3/uL 242 MPV (8.0-11.0) fL 10.0 Immature Gran % 0.3 Neutrophils % 61.0 Lymphocytes % 30.6 Monocytes % 6.8 Eosinophils % 0.5 Basophils % 0.8 Nucleated RBC % % 0 Absolute Neutrophils (1.2-6.7) 10^3/uL 4.49 Absolute Lymphocytes (1.2-3.4) 10^3/uL 2.25 Absolute Monocytes (0.1-0.8) 10^3/uL 0.50 Absolute Eosinophils (0.0-0.7) 10^3/uL 0.04 Absolute Basophils (0.0-0.2) 10^3/uL 0.06 Sodium (136-145) mmol/L 142 Potassium (3.5-5.1) mmol/L 3.5 Chloride (98-107) mmol/L 101 Carbon Dioxide (21.0-32.0) mmol/L 32.5 H Anion Gap (3-11) mmol/L 8.5 BUN (7-18) mg/dL 18 Creatinine (0.70-1.30) mg/dL 1.1 Estimated GFR/1.73 m2 (mL/min/1.73m2) >= 60.00 Glucose (74-106) mg/dL 104 Calcium (8.5-10.1) mg/dL 9.0 Total Bilirubin (0.2-1.0) mg/dL 0.7 AST (15-37) U/L 21 ALT (16-63) U/L 30 Alkaline Phosphatase (46-116) U/L 76 Total Protein (6.4-8.2) g/dL 7.8 Albumin (3.4-5.0) g/dL 4.1 Lipase (73-393) U/L 62 Urine Color (Yellow) Yellow Urine Clarity (Clear) Clear Urine pH (5-8) 7.0 Ur Specific [place] (1.005-1.025) 1.025 Urine Protein (Negative) mg/dL Negative Urine Ketones (Negative) mg/dL Negative Urine Blood (Negative) Trace-intact H Urine Nitrite (Negative) Negative Urine Bilirubin (Negative) Negative Urine Urobilinogen (Up TO 0.2) EU/dL 0.2 Ur Leukocyte Esterase (Negative) Negative Urine RBC (0-2) HPF 0-2 Urine WBC (0-5) HPF Negative Ur Epithelial Cells (Negative) HPF Rare Urine Crystals (Negative) HPF Negative Urine Bacteria (Negative) HPF Negative Urine Casts (Negative) LPF Negative Urine Mucus (Negative) Trace Ur Culture Indicated? No Urine Glucose (Negative) mg/dL Negative HPI General Mode of arrival: ambulatory . Date/Time Provider Initiated Documentation: 01/24/21 08:06 . Limitations to Documentation: no limitations . Information obtained by: patient . HPI Narrative: This is a 65-year-old gentleman, past medical history of chronic back pain, lumbar surgery nearly 20 years ago, left hip replacement, renal stone nearly 20 years ago, presenting to the ER for evaluation of left-sided back pain that radiates to his flank over the past 10 days. Denies any injury or recent illness. Nothing really makes his discomfort worse or better. Pain has been mild to moderate but over the past 24 hours is much more severe, unable to sleep last night. He denies any fever, chest pain, shortness of breath, anterior abdominal pain, nausea, vomiting, dysuria, hematuria, pain in his testicles or scrotum, penis, penile discharge. Patient has taken his typical medications for his chronic back pain with only minimal relief. He denies any radiation of this pain down his legs. Denies any numbness, tingling, weakness, bowel or bladder incontinence or retention. Related Data Home Medications Medication Instructions Recorded Confirmed acetaminophen 1,000 mg PO Q8H PRN #90 tab 10/16/19 01/24/21 lisinopril 10 mg tablet 10 mg PO DAILY #90 tab-cap 12/03/19 01/24/21 chlorthalidone 25 mg tablet 25 mg PO DAILY #90 tab-cap 05/12/20 01/24/21 celecoxib 200 mg capsule 200 mg PO BID PRN #60 cap 11/23/20 01/24/21 oxycodone-acetaminophen [Percocet] 1 tab PO Q8H PRN #8 tab 01/24/21 Previous Rx's Medication Instructions Recorded acetaminophen 1,000 mg PO Q8H PRN #90 tab 10/16/19 lisinopril 10 mg tablet 10 mg PO DAILY #90 tab-cap 12/03/19 chlorthalidone 25 mg tablet 25 mg PO DAILY #90 tab-cap 05/12/20 celecoxib 200 mg capsule 200 mg PO BID PRN #60 cap 11/23/20 oxycodone-acetaminophen [Percocet] 1 tab PO Q8H PRN #8 tab 01/24/21 Allergies Allergy/AdvReac Type Severity Reaction Status Date / Time No Known Allergies Allergy Verified 01/24/21 08:06 General Stated Complaint: Nk/Back Pain JEANA: 3 Review of Systems Constitutional Constitutional: Denies fatigue, Denies fever(s) and Denies weakness Cardiovascular Cardiovascular: Denies chest pain and Denies dyspnea Respiratory Respiratory: Denies cough and Denies dyspnea Gastrointestinal Gastrointestinal: Reports abdominal pain (L Flank), Denies nausea and Denies vomiting Genitourinary Genitourinary: Denies hematuria and Denies dysuria Musculoskeletal Musculoskeletal: Reports back pain, Denies numbness and Denies tingling Integumentary/Breasts Skin/Breast: Denies rash Neurologic Neurologic: Denies numbness, Denies tingling and Denies weakness Endocrine Endocrine: Denies fatigue [facility] Active Problem List Flank pain (Acute) Snoring (Acute) Cervical radiculopathy (Acute) DDD (degenerative disc disease), cervical (Acute) Biceps tendinitis of right shoulder (Acute) Bursitis of right shoulder (Acute) Bilateral shoulder pain (Acute) Status post total hip replacement, left (Acute 10/16/19) Normal colonoscopy (Acute) Trochanteric bursitis, left hip (Acute) Degenerative joint disease of left hip (Chronic) Sessile colonic polyp (Acute 03/17/16) Hemorrhoids (Acute) Essential hypertension (Acute) Medical History Reza hematuria Prolapsed lumbosacral intervertebral disc (01/16/13) Surgical History BACK DISC SURGERY Colonoscopy - IV Sedation (03/17/16) History of spinal surgery Family History Mother Essential hypertension Breast cancer Father , AGE 42 No problems noted. Sister Essential hypertension Brother Essential hypertension Alcohol abuse Hyperlipidemia Substance abuse Maternal Grandfather , 70 Heart disease Hypertension Maternal Grandmother , 75 Stroke Son Essential hypertension Daughter No problems noted. Uncle Colon cancer Uncle Colon cancer Uncle , 1960'S Colon cancer Son No problems noted. Paternal Grandfather , 38 No problems noted. Social History Smoking/Tobacco Use Status: Former Tobacco Use Quit Date: 03/12/77 Second Hand Exposure: Yes Smoking risk assessment performed?: Yes Alcohol Intake: current Alcohol Intake frequency: a few times a week Alcohol type: beer Drug use: Never Substance use type: does not use Caregiver/Support person: No Household members: spouse Housing: house Communication Needs: None Pets and animals: No Sexually active: Yes Do you think of yourself as: straight/heterosexual Current gender identity: male What is your relationship status?: How often do you talk on the phone with friends or family?: three or more times per week How often do you get together with friends or relatives?: three or more times per week How often do you attend rastafarian or worship services?: 1-3 times per year Do you belong to any clubs or organized social groups?: yes Panel score (0-1 are the most socially isolated patients): 3 What type of physical activity do you participate in: walking Duration: 45-60 minutes/day Frequency: 5-6 times per week Jessica/Latter-Day: [employer]-Ism Special jessica needs: No Seatbelt use: always Helmet use: Yes Helmet use: always Drive intox or ride w/intox wrecking car driver: No Do you feel safe at home: Yes Do you feel safe in your relationship?: Yes Victim of physical abuse: No Victim of emotional abuse: No Victim of sexual abuse: No Would you like helpful sources: No Exam Const General: cooperative, healthy appearing and no acute distress Orientation: alert, awake and oriented x3 HENMT Head: normal to inspection, normocephalic and atraumatic Mouth: moist mucous membranes Eyes General: appearance normal, both eyes and all related structures Conjunctivae: conjunctivae normal Neck Neck: normal visual inspection, full ROM, trachea midline and supple Resp Effort & Inspection: normal respiratory effort and able to speak in complete sentences Auscultation: clear to auscultation bilaterally Cardio Rate: regular rate Rhythm: regular rhythm GI Palpation: soft, not firm, no guarding, no pulsatile masses and nontender Auscultation: normal bowel sounds Back/Spine/Pelvis Back: no CVA tenderness and No back tenderness Skin General skin exam: no rashes or lesions noted Neuro General: patient alert, patient awake, moves all extremities and no focal motor deficits Cognition: normal cognition Speech: speech normal Gait: normal gait Sensory Exam: no sensory deficits noted Extrem General: normal to inspection, full ROM, capillary refill normal, no pedal edema and no calf tenderness Psych Appearance: grossly normal Mental Status: mental status grossly normal Course Vital Signs Vital signs: Vital Signs Temperature 36.3 C L 01/24/21 08:02 Pulse 71 01/24/21 08:02 Respiratory Rate 16 11/15/21 08:02 Blood Pressure 176/81 H 01/24/21 08:02 Pulse Oximetry 98 01/24/21 08:02 Temperature 36.3 C L 01/24/21 08:02 Temperature Source Skin 01/24/21 08:02 Pulse 71 01/24/21 08:02 Respiratory Rate 16 01/24/21 08:02 Respiratory Effort Non-Labored 01/24/21 08:02 Blood Pressure 176/81 H 01/24/21 08:02 Pulse Oximetry 98 01/24/21 08:02 Oxygen Delivery Method Room Air 01/24/21 08:02 Oxygen Flow Rate 0 01/24/21 08:02 Pain Level 10 01/24/21 08:02 Lab/Test Results Lab/Test Results: Laboratory Tests Range/Units 01/24/21 01/24/21 01/24/21 08:10 09:00 09:00 WBC (4.4-10.8) 10^3/uL 7.36 RBC (4.36-5.78) 10^6/uL 5.35 Hgb (13.5-17.5) g/dL 17.1 Hct (40.0-50.0) % 50.0 MCV (80-95) fL 93.5 MCH (27.0-33.0) pg 32.0 MCHC (32.0-36.0) % 34.2 RDW (11.8-14.1) % 12.2 Plt Count (130-400) 10^3/uL 242 MPV (8.0-11.0) fL 10.0 Immature Gran % 0.3 Neutrophils % 61.0 Lymphocytes % 30.6 Monocytes % 6.8 Eosinophils % 0.5 Basophils % 0.8 Nucleated RBC % % 0 Absolute Neutrophils (1.2-6.7) 10^3/uL 4.49 Absolute Lymphocytes (1.2-3.4) 10^3/uL 2.25 Absolute Monocytes (0.1-0.8) 10^3/uL 0.50 Absolute Eosinophils (0.0-0.7) 10^3/uL 0.04 Absolute Basophils (0.0-0.2) 10^3/uL 0.06 Sodium (136-145) mmol/L 142 Potassium (3.5-5.1) mmol/L 3.5 Chloride (98-107) mmol/L 101 Carbon Dioxide (21.0-32.0) mmol/L 32.5 H Anion Gap (3-11) mmol/L 8.5 BUN (7-18) mg/dL 18 Creatinine (0.70-1.30) mg/dL 1.1 Estimated GFR/1.73 m2 (mL/min/1.73m2) >= 60.00 Glucose (74-106) mg/dL 104 Calcium (8.5-10.1) mg/dL 9.0 Total Bilirubin (0.2-1.0) mg/dL 0.7 AST (15-37) U/L 21 ALT (16-63) U/L 30 Alkaline Phosphatase (46-116) U/L 76 Total Protein (6.4-8.2) g/dL 7.8 Albumin (3.4-5.0) g/dL 4.1 Lipase (73-393) U/L 62 Urine Color (Yellow) Yellow Urine Clarity (Clear) Clear Urine pH (5-8) 7.0 Ur Specific [place] (1.005-1.025) 1.025 Urine Protein (Negative) mg/dL Negative Urine Ketones (Negative) mg/dL Negative Urine Blood (Negative) Trace-intact H Urine Nitrite (Negative) Negative Urine Bilirubin (Negative) Negative Urine Urobilinogen (Up TO 0.2) EU/dL 0.2 Ur Leukocyte Esterase (Negative) Negative Urine RBC (0-2) HPF 0-2 Urine WBC (0-5) HPF Negative Ur Epithelial Cells (Negative) HPF Rare Urine Crystals (Negative) HPF Negative Urine Bacteria (Negative) HPF Negative Urine Casts (Negative) LPF Negative Urine Mucus (Negative) Trace Ur Culture Indicated? No Urine Glucose (Negative) mg/dL Negative
[2021-01-24 12:08] VITALS: BP 141/85; PULSE 64; RESP 17; TEMP 37; O2SAT 97
== END 2021-01-24 11:28 | disposition home or self-care (01) ==
PROVIDERS: Emergency Provider Physician Assistant; PCP Family Medicine
DX: R10.9 Unspecified abdominal pain (principal); M54.50 Low back pain, unspecified
CPT/HCPCS: 36415; 80053; 83690; 96361; 96374; 96375; 99284; 74176; 81003; 81015; 85025; J1885

== ENCOUNTER → 2021-02-11 11:02 | Outpatient (BNVA) | payer MEDICARE, BC, SELFPAY | PROVIDERS: PCP Family Medicine; Referring Provider Family Medicine; Visit Provider Urology | DX: N20.0 Calculus of kidney (principal) | CPT/HCPCS: 81003; 99214 ==

== ENCOUNTER 2021-02-21 04:01 | Outpatient (CLI) | payer MEDICARE, BC, SELFPAY ==
[2021-02-21 13:53] LABS: Calculated LDL 138 mg/dL (<100); Cholesterol 230 mg/dL (<200); HDL Cholesterol 52 mg/dL (40-60); Triglyceride 202 mg/dL (<150)
[2021-02-22 11:19] LABS: Lyme Ab w Rflx to Lyme Confirm Negative (Negative)
== END 2021-02-21 04:02 | disposition home or self-care (01) ==
LOC: LBO 04:01
PROVIDERS: PCP Family Medicine; Visit Provider Family Medicine
DX: I10 Essential (primary) hypertension (principal); Z00.00 Encounter for general adult medical examination without abnormal findings; Z87.828 Personal history of other (healed) physical injury and trauma
CPT/HCPCS: 36415; 80061; 86618

== ENCOUNTER 2021-10-24 09:47 | Outpatient (CLI) | payer MEDICARE, BC, SELFPAY ==
--- NOTE | 2021-10-24 09:08 | DI.RAD_ITS ---
Exam(s) XR HIP LT AP LAT ONLY EXAM: XR HIP LT AP LAT ONLY CLINICAL HISTORY: follow up. TECHNIQUE: 2D digital imaging was performed. COMPARISON: CR XR HIP LT AP LAT ONLY from 10/15/2020 FINDINGS: Two views: There is stable position alignment of the components of the left hip prosthesis. No fracture or loos ening evident. There is no radiographic evidence osteomyelitis. IMPRESSION: DATA REPOSITORY: RADIATION DOSE DELIVERED:
== END 2021-10-24 09:48 | disposition home or self-care (01) ==
LOC: DIORS 09:48
PROVIDERS: PCP Family Medicine; Referring Provider Family Medicine; Visit Provider Physician Assistant Surgical
DX: Z96.642 Presence of left artificial hip joint (principal); M75.51 Bursitis of right shoulder
CPT/HCPCS: 99214; 73502

== ENCOUNTER 2021-11-02 10:34 | Outpatient (CLI) | payer MEDICARE, BC, SELFPAY ==
--- NOTE | 2021-11-02 10:30 | RT.EKG_ITS ---
APPROVED REPORT Exam: Resting ECG Reason for Exam: SOB/Dizziness Patient Location: O HR:59 bpm ECG Measurements Heart Rate 59 AXIS WY 185 P -9 QRSd 87 QRS -39 QT 413 T 33 QTc 410 Conclusion Sinus rhythm...normal P axis, V-rate 50- 99 Left axis
== END 2021-11-02 10:35 | disposition home or self-care (01) ==
LOC: DI.CM 10:34
PROVIDERS: PCP Family Medicine; Visit Provider Family Medicine
DX: R06.02 Shortness of breath (principal); R42 Dizziness and giddiness
CPT/HCPCS: 93010

== ENCOUNTER 2022-03-14 04:03 | Outpatient (CLI) | payer MEDICARE, BC, SELFPAY ==
[2022-03-14 09:00] LABS: Anion Gap 6.8 mmol/L (3-11); BUN 17 mg/dL (7-18); CO2 33.2 mmol/L (21.0-32.0); CREATININE 1.2 mg/dL (0.70-1.30); Calcium 8.9 mg/dL (8.5-10.1); Calculated LDL 130 mg/dL (<100); Chloride 100 mmol/L (98-107); Cholesterol 214 mg/dL (<200); Glucose 101 mg/dL (74-106); HDL Cholesterol 64 mg/dL (40-60); Potassium 3.7 mmol/L (3.5-5.1); Sodium 140 mmol/L (136-145); Triglyceride 103 mg/dL (<150)
== END 2022-03-14 04:04 | disposition home or self-care (01) ==
LOC: LBO 04:04
PROVIDERS: PCP Family Medicine; Visit Provider Family Medicine
DX: E78.2 Mixed hyperlipidemia (principal); Z00.00 Encounter for general adult medical examination without abnormal findings; I10 Essential (primary) hypertension
CPT/HCPCS: 36415; 80048; 80061

== ENCOUNTER 2022-10-31 10:58 | Emergency (ER) | payer MEDICARE, BC, SELFPAY ==
[2022-10-31 11:10] VITALS: BP 140/67; PULSE 66; RESP 20; TEMP 36.8; O2SAT 99
--- NOTE | 2022-10-31 12:28 | DI.CT_ITS ---
Exam(s) CT HEAD CERVICAL SPINE WO EXAM: CT HEAD CERVICAL SPINE WO CLINICAL HISTORY: head injury LOC. TECHNIQUE: Imaging Protocol: Axial computed tomography images with coronal and sagittal reformatted images were created and reviewed COMPARISON: No exams were available for comparison FINDINGS: BRAIN: There is a prominent hematoma over the high left parietal region. No subjacent skull fracture. There are no skull fractures nor fluid in the visualized paranasal sinuses. There is no evidence of intracranial hemorrhage, mass effect, or shift of midline structures. There are no extra-axial fluid collections. The ventricles are not enlarged or shifted and there is no blo od within the ventricular system nor within the basal cisterns. CERVICAL SPINE: There is no evidence of fracture nor listhesis. No significant prevertebral soft tissue swelling. Multilevel chronic disc space narrowing. Multilevel facet arthropathy. There is no significant facet joint malalignment. No significant osseous lesions evident. IMPRESSION: No acute intracranial findings on this noninfused CT scan of the brain.Left parietal scalp hematoma n oted. No skull fracture. Multilevel chronic degenerative changes in the cervical spinal column. No evidence of cervical spine fracture, malalignment, nor acute compromise of the cervical spinal can al. Called to ER RADIATION DOSE DELIVERED: 1,670.4mGy.cm Total DLP DATA REPOSITORY: All CT scans at this facility are submitted to the National Radiology Data Registry (NRDR) Dose Index Registry (DIR) with the [employer] (ACR). RADIATION OPTIMIZATION: All CT scans at this facility use at least one of these dose optimization te chniques: automated exposure control; mA and/or kV adjustment per patient size (includes targeted exa ms where dose is matched to clinical indication); or iterative reconstruction.
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
[2022-10-31] MEDS: Ondansetron O.D.T. 4 MG TABEF SL (12:37)
[2022-10-31] MEDS: Lidocaine 5% Patch 1 PATCH TP (12:57)
[2022-10-31 14:33] VITALS: BP 118/96; PULSE 58; TEMP 36.7; O2SAT 97
== END 2022-10-31 14:41 | disposition home or self-care (01) ==
PROVIDERS: Emergency Provider Emergency Medicine; PCP Family Medicine
DX: S09.90XA Unspecified injury of head, initial encounter (principal); I10 Essential (primary) hypertension; Z79.82 Long term (current) use of aspirin; W22.8XXA Striking against or struck by other objects, initial encounter; Y93.89 Activity, other specified; Y92.89 Other specified places as the place of occurrence of the external cause; Y99.9 Unspecified external cause status
CPT/HCPCS: 99284; 70450; 72125; 99283

== ENCOUNTER 2023-02-14 14:37 | Outpatient (CLI) | payer MEDICARE, BC, SELFPAY ==
[2023-02-14 14:13] LABS: Uric Acid 7.5 mg/dL (3.5-7.2)
== END 2023-02-14 14:38 | disposition home or self-care (01) ==
LOC: LBO 14:37
PROVIDERS: PCP Family Medicine; Visit Provider Nurse Practitioner Family
DX: M10.9 Gout, unspecified (principal)
CPT/HCPCS: 36415; 84550

== ENCOUNTER 2023-06-20 08:41 | Outpatient (CLI) | payer MEDICARE, BC, SELFPAY ==
[2023-06-20 08:54] LABS: CREATININE 1.1 mg/dL (0.70-1.30); Calculated LDL 148 mg/dL (<100); Cholesterol 235 mg/dL (<200); Estimated GFR 73.58 (mL/min/1.73m2); HDL Cholesterol 64 mg/dL (40-60); Potassium 3.6 mmol/L (3.5-5.1); Triglyceride 119 mg/dL (<150)
[2023-06-20 21:58] LABS: PSA, Screening 4.2 ng/mL (<=4.5)
== END 2023-06-20 08:42 | disposition home or self-care (01) ==
LOC: LBO 08:41
PROVIDERS: PCP Family Medicine; Visit Provider Nurse Practitioner Family
DX: Z13.6 Encounter for screening for cardiovascular disorders (principal); I10 Essential (primary) hypertension; Z12.5 Encounter for screening for malignant neoplasm of prostate
CPT/HCPCS: 36415; 80061; 84153; 82565; 84132

== ENCOUNTER → 2023-07-19 09:33 | Outpatient (BNVA) | payer MEDICARE, BC, SELFPAY | PROVIDERS: PCP Family Medicine; Referring Provider Family Medicine; Visit Provider Student in an Organized Health Care Education/Training Program | CPT/HCPCS: J1010 ==

== ENCOUNTER 2023-07-19 15:19 | Outpatient (CLI) | payer MEDICARE, BC, SELFPAY ==
--- NOTE | 2023-07-19 09:42 | DI.RAD_ITS ---
Exam(s) XR HIP LT AP LAT ONLY EXAM: XR HIP LT AP LAT ONLY CLINICAL HISTORY: left hip pain. TECHNIQUE: 2D digital imaging was performed. Two images were obtained. AP and lateral views were ob tained. COMPARISON: CR XR HIP LT AP LAT ONLY from 10/24/2021 FINDINGS: BONES: There are stable post operative changes of a left total hip replacement present. No fracture or dislocation. JOINTS: The orthopedic hardware is in good position. No evidence of hardware loosening. SOFT TISSUE: Normal. IMPRESSION: Stable left total hip replacement. DATA REPOSITORY: RADIATION DOSE DELIVERED:
== END 2023-07-19 15:20 | disposition home or self-care (01) ==
LOC: DIORS 15:23
PROVIDERS: PCP Family Medicine; Visit Provider Physician Assistant
DX: M70.62 Trochanteric bursitis, left hip
CPT/HCPCS: 20610; J1010; 73502

== ENCOUNTER 2023-09-24 13:53 | Emergency (ER) | payer MEDICARE, BC, SELFPAY ==
[2023-09-24 14:52] VITALS: BP 157/99; PULSE 80; RESP 14; TEMP 36.8; O2SAT 96
--- NOTE | 2023-09-24 18:53 | W.ED.GENAD ---
Discharge Plan Disposition Patient Disposition: Home Condition: Improving Discharge Details Chief Complaint: Laceration Clinical Impression: Laceration of thumb Primary Care Provider: Abbie Castano ED Provider: Rex Holder Home Meds and New Rx's Prescriptions: No Action aspirin 81 mg tablet,delayed release (DR/EC) 81 mg PO DAILY Qty: 90 3RF simvastatin 20 mg tablet 20 mg PO QHS Qty: 90 3RF lisinopril 10 mg tablet 10 mg PO DAILY Qty: 90 4RF chlorthalidone 25 mg tablet 25 mg PO DAILY Qty: 90 4RF colchicine [Colcrys] 0.6 mg tablet See Rx Instructions PO .COMPLEX Qty: 6 3RF Rx Instructions: 2 tabs once and May repeat 1 tab 6 hours later. May use once daily until symptoms improve orally; Discharge Instructions Instructions: Laceration Repair With Stitches ED Additional Instructions: Your sutures are absorbable and should begin to fall out within 7 to 10 days, please keep wound clean and dry, please return to the emergency department for any worsening symptoms HPI General Date/Time Provider Initiated Documentation: 09/24/23 15:38. HPI Narrative: 68-year-old male presents with laceration to left thumb excellently cut with utility knife, clean knife while working on his car, last tetanus booster was in 2014, controlled bleeding with gauze Related Data Home Medications ?Medication ?Instructions ?Recorded ?Confirmed aspirin 81 mg tablet,delayed 81 mg PO DAILY #90 tabs 11/02/21 07/21/23 release chlorthalidone 25 mg tablet 25 mg PO DAILY #90 tab-caps 11/20/22 07/21/23 lisinopril 10 mg tablet 10 mg PO DAILY #90 tab-caps 11/20/22 07/21/23 colchicine 0.6 mg tablet (Colcrys) See Rx Instructions PO .COMPLEX #6 02/08/23 07/21/23 tabs simvastatin 20 mg tablet 20 mg PO QHS #90 tabs 06/25/23 07/21/23 Previous Rx's ?Medication ?Instructions ?Recorded aspirin 81 mg tablet,delayed 81 mg PO DAILY #90 tabs 11/02/21 release chlorthalidone 25 mg tablet 25 mg PO DAILY #90 tab-caps 11/20/22 lisinopril 10 mg tablet 10 mg PO DAILY #90 tab-caps 11/20/22 colchicine 0.6 mg tablet (Colcrys) See Rx Instructions PO .COMPLEX #6 02/08/23 tabs simvastatin 20 mg tablet 20 mg PO QHS #90 tabs 06/25/23 Allergies Allergy/AdvReac Type Severity Reaction Status Date / Time No Known Allergies Allergy Verified 09/24/23 14:55 General Stated Complaint: Laceration JEANA: 4 Course Vital Signs Vital signs: Vital Signs Temperature 36.8 C 09/24/23 14:52 Pulse 80 09/24/23 14:52 Respiratory Rate 14 09/24/23 14:52 Blood Pressure 157/99 H 09/24/23 14:52 Pulse Oximetry 96 09/24/23 14:52 Temperature 36.8 C 09/24/23 14:52 Pulse 80 09/24/23 14:52 Respiratory Rate 14 09/24/23 14:52 Blood Pressure 157/99 H 09/24/23 14:52 Pulse Oximetry 96 09/24/23 14:52 Oxygen Delivery Method Room Air 09/24/23 14:52 Oxygen Flow Rate 0 09/24/23 14:52 Pain Level 1 09/24/23 14:52 Procedures Laceration Laceration 1: Site: hand Side (If applicable): left Size (cm): 4 Description: linear Depth: simple, single layer and involves muscle layer Local anesthetic: Lidocaine 1% Amount of anesthesia used (mL): 2 Pre-repair: wound explored, irrigated extensively and deep structures intact Skin layer closed with: vicryl Size (cm): 5-0 Number of sutures: 4 Technique: simple, interrupted Medical Decision Making 68-year-old male presents with accidental laceration to left thumb with utility knife, 4 cm linear laceration to dorsal aspect of left thumb, hemostatic no foreign bodies appreciated, full range of motion of thumb and fingers, median radial and ulnar sensory nerve distribution intact, radial pulse intact, good capillary refill, will update tetanus, no other signs of injury, will irrigate extensively, lower suspicion for tendinous involvement or bony involvement. Given clean knife and will irrigated wound will hold on any prophylactic antibiotics, will closed with absorbable simple interrupted sutures. Home care instructions return precautions to be given 20: 29 Ring block applied 1% lidocaine, wound irrigated extensively, no evidence of vascular or neurologic or tendinous structures, closed with 4 x 5-0 Vicryl simple interrupted sutures proximal area of thin flap closed with surgical glue; patient has full range of motion of thumb post procedure good capillary refill Quality:SDOH Health Related Social Needs: No Data to Display PFSH All Active Problems (Updated 09/24/23 @ 20:36 by Rex Holder MD) Laceration of thumb (Acute) Trochanteric bursitis, left hip (Acute) DEPO MEDROL 07/19/23 Hip pain, left (Acute) Gout (Chronic) Essential hypertension (Chronic) Bilateral shoulder pain (Chronic) DDD (degenerative disc disease), cervical (Chronic) Snoring (Chronic) Hyperlipemia, mixed (Chronic) ACC/AHA risk 18% 02/2021 Onychocryptosis (Chronic) Obstructive sleep apnea (Chronic) unable to tolerate CPAP Obesity with serious comorbidity (Acute) Medical History Right kidney stone Bursitis of right shoulder Depo-Medrol injection: 08/06/2020 Prolapsed lumbosacral intervertebral disc (01/16/13) Sessile colonic polyp (03/17/16) Hemorrhoids intermittent, not currently active Surgical History Status post total hip replacement, left (10/16/19) Normal colonoscopy History of spinal surgery Family History Mother , 07/2020, age 87 Essential hypertension Breast cancer Colon cancer Father , AGE 42 No problems noted. Sister Essential hypertension Brother Essential hypertension Alcohol abuse Hyperlipidemia Substance abuse Maternal Grandfather , 70 Heart disease Hypertension Maternal Grandmother , 75 Stroke Son Essential hypertension Daughter No problems noted. Uncle Colon cancer Uncle Colon cancer Uncle , 1960'S Colon cancer Son No problems noted. Paternal Grandfather , 38 No problems noted. 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 Pets and animals: No Sexually active: Yes Do you think of yourself as: straight/heterosexual Current gender identity: male What is your relationship status?: How often do you talk on the phone with friends or family?: three or more times per week How often do you get together with friends or relatives?: three or more times per week How often do you attend zoroastrianism or tenriism services?: 1-3 times per year Do you belong to any clubs or organized social groups?: yes Panel score (0-1 are the most socially isolated patients): 3 What type of physical activity do you participate in: walking Duration: 45-60 minutes/day Frequency: 5-6 times per week Jessica/Scientologist: Adventism Seatbelt use: always Helmet use: Yes Helmet use: always Drive intox or ride w/intox 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
[2023-09-24 20:44] VITALS: BP 157/99; PULSE 80; RESP 14; TEMP 36.8; O2SAT 96
[2023-09-24] MEDS: Lidocaine 1% Multi-Dose 50 ML VIAL (20:45)
== END 2023-09-24 20:44 | disposition home or self-care (01) ==
PROVIDERS: Emergency Provider Emergency Medicine; PCP Family Medicine
DX: S61.012A Laceration without foreign body of left thumb without damage to nail, initial encounter (principal); I10 Essential (primary) hypertension; E78.5 Hyperlipidemia, unspecified; Z23 Encounter for immunization; Z87.891 Personal history of nicotine dependence; W26.0XXA Contact with knife, initial encounter; Y93.89 Activity, other specified
CPT/HCPCS: 12002; 90471; 99283

== ENCOUNTER 2024-01-02 12:59 | Outpatient (CLI) | payer MEDICARE, BC, SELFPAY ==
--- NOTE | 2024-01-02 13:30 | RT.EKG_ITS ---
APPROVED REPORT Exam: Resting ECG Reason for Exam: palpitations Patient Location: O HR:66 bpm ECG Measurements Heart Rate 66 AXIS WV 181 P 11 QRSd 94 QRS -59 QT 419 T 4 QTc 439 Conclusion Sinus rhythm...normal P axis, V-rate 50- 99 LAFB Poor R wave progression
== END 2024-01-02 13:00 | disposition home or self-care (01) ==
PROVIDERS: PCP Family Medicine; Visit Provider Nurse Practitioner Family
DX: R00.2 Palpitations (principal)
CPT/HCPCS: 93010

== ENCOUNTER 2024-01-02 15:08 | Outpatient (CLI) | payer MEDICARE, BC, SELFPAY ==
[2024-01-02 14:18] LABS: HCT 46.1 % (40.0-50.0); HGB 16.1 g/dL (13.5-17.5); MCH 32.9 pg (27.0-33.0); MCHC 34.9 % (32.0-36.0); MCV 94 fL (80-95); MPV 9.4 fL (8.0-11.0); Platelet Count 227 10^3/uL (130-400); RDW 12.4 % (11.8-14.1); RDW-SD 43.3 fL; WBC 7.62 10^3/uL (4.4-10.8)
[2024-01-02 14:53] LABS: ALT 27 U/L (16-63); AST 21 U/L (15-37); Albumin 3.8 g/dL (3.4-5.0); Alkaline Phosphatase 66 U/L (46-116); Anion Gap 7.3 mmol/L (3-11); BUN 22 mg/dL (7-18); CO2 29.7 mmol/L (21.0-32.0); CREATININE 1.3 mg/dL (0.70-1.30); Calculated LDL 98 mg/dL (<100); Chloride 104 mmol/L (98-107); Cholesterol 187 mg/dL (<200); Estimated GFR 60.21 (mL/min/1.73m2); Glucose 97 mg/dL (74-106); HDL Cholesterol 68 mg/dL (40-60); Magnesium 2.2 mg/dL (1.8-2.4); Potassium 3.7 mmol/L (3.5-5.1); Sodium 141 mmol/L (136-145); TSH (W/Ref FT4) 3.05 uIU/mL (0.36-3.74); Total Protein 7.1 g/dL (6.4-8.2); Triglyceride 107 mg/dL (<150); Troponin I 11 ng/L (<or=76)
== END 2024-01-02 15:09 | disposition home or self-care (01) ==
LOC: LBO 15:11
PROVIDERS: PCP Family Medicine; Visit Provider Nurse Practitioner Family
DX: R42 Dizziness and giddiness (principal); E78.2 Mixed hyperlipidemia; R00.2 Palpitations; I20.9 Angina pectoris, unspecified
CPT/HCPCS: 36415; 80053; 80061; 85027; 83735; 84443; 84484

== ENCOUNTER 2024-01-31 02:01 | Outpatient (CLI) | payer MEDICARE, BC, SELFPAY ==
--- NOTE | 2024-01-31 06:15 | DI.NM_ITS ---
APPROVED REPORT Exam: Pharmacologic Patient Location: Out-Patient Room/Bed: Stress Nurse: Isael Craig RN Ordering Provider:SWEETIE HOLLINS, Contact Number: [phone] BMI: 31.31 Baseline Rhythm: Sinus Bradycardia. Comment: Left Bundle Branch Block. Indications: Chest Pain and SOB on Exertion; Anginal Pain. Medical History Medical History: Family Hx; Hyperlipidemia; Hypertension; Obstructive Sleep Apnea. Cardiac Medications: Aspirin; Atorvastatin; Celecoxib; Chlorthalidone; Colchine; Lisinopril; Nitrogly cerin. Allergies: None. Cardiac Risk Factors: Family Hx; Hyperlipidemia; Hypertension. Previous Cardiac Procedures: None. Pretest Chest Pain Characteristics: None. Exercise History: Physically active. Physical Disabilities: None. Lung Sounds: Clear bilaterally throughout, anterior and posterior. Heart Sounds: S1 and S2 auscultated. Stress Test Details Test: Pharmacologic stress was paired with low level exercise. Reason for pharmacologic stress test: LBBB. Nuclear Acquisition: Rest Tc-99m/Stress Tc-99m 1 day Rest Isotope: Tc-99m Sestamibi. Dose: 10.2 Date: 01/31/2024 Injection Time: 0840 Stress Isotope: Tc-99m Sestamibi. Dose: 31.4 Date: 01/31/2024 Injection Time: 1005 HR Resting HR Supine: 59 bpm Max Heart Rate (APMHR): 152.370889 bpm Resting HR Standin bpm Target HR (85% APMHR): 129.827960 bpm Max HR Achieved: 108 bpm % of APMHR: 71.05 Recovery HR: 67 bpm BP Resting BP Supine: 142/82 mmHg Resting BP Standin/80 mmHg Max BP: 162/78 mmHg Recovery BP: 144/78 mmHg ECG Resting ECG: Sinus Bradycardia w/ a LBBB. Ectopy: None. Stress ECG: Sinus Tachycardia w/ a LBBB. ST Change: Nondiagnostic low heart rate; Nondiagnostic LBBB. Arrhythmia: None. Recovery ECG: Sinus Rhythm w/ a LBBB. Recovery ST Change: Nondiagnostic low heart rate; Nondiagnostic LBBB. Recovery Arrhythmia: Occasional PVC's. Clinical Stress Symptoms: Dyspnea. Exercise duration: 04 min00 sec Exercise capacity: 1.92 METs Angina Score: None Rate Pressure Product: 24939 Stress ECG Conclusion 1. Resting EKG showed left axis and an incomplete LBBB 2. Patient underwent testing using pharmacologic stress with with regadenoson. With low-level exerci se 3. Peak heart rate achieved was 71% of predicted for age 4. The electrocardiographic portion of the test was nondiagnostic 5. See MPI report March Treadmill Score is which is Moderate risk. Stress Test Summary STAGE HR BP SpO2 Symptoms NOTES Supine 59 142/82 97 Standing 65 142/80 97 1 min post Lexiscan injection 92 138/68 98 Pt. c/o moderate shortness of breath. 3 min post Lexiscan injection 77 162/78 98 Pt. c/o mild shortness of breath. 6 min post Lexiscan injection 67 144/78 96 Pt. states that all symptoms have resolved. Dr. Christopher was consulted prior to starting the stress test, as pt.'s EKG was showing a left bundle bran ch block. Per Dr. Christopher, it was safe to proceed with a walking lexiscan stress test, which was perform ed. Pt. tolerated the stress test well. Pt. was conversing pleasantly with nursing staff upon leaving the Stress Lab. Pt. left ambulatory in no apparent distress. MPI Conclusion Myocardial perfusion is normal. There is no ischemia or evidence of prior infarction Calculated EF is 45%. Visually ejection fraction appears within the range of normal and wall motion is normal Radiologist Interpretation Radiologist agrees with Clay Temperer's Interpretation. Radiologist Interpretation by: Rakan Hughes MD Interpretation Date/Time: 02/01/2024 17:41:33
[2024-01-31] MEDS: Regadenoson 0.4 MG/5 ML SYR IVP (10:04)
== END 2024-01-31 02:21 ==
LOC: DI 02:01
PROVIDERS: PCP Family Medicine; Visit Provider Nurse Practitioner Family
DX: I20.9 Angina pectoris, unspecified (principal); R07.9 Chest pain, unspecified
CPT/HCPCS: 78452; 93016; 93018; 93017; J2785

== ENCOUNTER 2024-03-04 03:46 | Outpatient (CLI) | payer MEDICARE, BC, SELFPAY ==
[2024-03-04] MEDS: Inhaler, Assist Device 1 EACH MC (14:13)
[2024-03-04] MEDS: Levalbuterol HFA 15 GM INH 4 PUFF IH (14:14)
--- NOTE | 2024-03-13 12:07 | W.PFT ---
Date of service: 03/04/24 Time of Service: 13:01 Pulmonary Function Test Result Indications: Dyspnea Interpretation Spirometry: No airflow limitation. No bronchodilator response Lung Volumes: Normal lung volumes Diffusion Capacity: Normal diffusion Airway Pressure: Normal airways resistance Impression Normal pulmonary function testing Clinical Correlation therefore is recommended.
== END 2024-03-04 03:47 | disposition home or self-care (01) ==
LOC: RT 03:47
PROVIDERS: PCP Family Medicine; Visit Provider Student in an Organized Health Care Education/Training Program
DX: R06.00 Dyspnea, unspecified (principal)
CPT/HCPCS: 94060; 94726; 94729

== ENCOUNTER 2024-03-07 00:37 | Outpatient (CLI) | payer MEDICARE, BC, SELFPAY ==
--- NOTE | 2024-03-07 08:30 | DI.US_ITS ---
APPROVED REPORT EXAM: Comprehensive 2D, Doppler, and color-flow Echocardiogram Patient Location: Out-Patient [employer] Operator: Manjeet Rendon RDCS (AE) Indications: Ongoing dyspnea, EF 45% on stress test, heart murmur Conclusion Normal left ventricular wall thickness and chamber size. Ejection fraction is 55%. Wall motion is n ormal Normal right ventricular size and function Both atria are normal in size Aortic valve is trileaflet and mildly sclerotic There is mild mitral and tricuspid regurgitation Estimated right ventricular systolic pressure is 27 mmHg Wall motion Left Ventricle The left ventricle is normal size. The left ventricular systolic function is normal. The left ventric ular ejection fraction is within the normal range. There is normal left ventricular wall thickness. T here are no segmental wall motion abnormalities There is no ventricular septal defect visualized. EF 55% Right Ventricle The right ventricle is normal size. The right ventricular systolic function is normal. Atria The left atrium size is normal. The right atrium size is normal. The interatrial septum is intact wit h no evidence for an atrial septal defect. Aortic Valve The aortic valve is mildly sclerotic Aortic valve is trileaflet. There is no aortic valvular stenosis . No aortic regurgitation is present. Mitral Valve The mitral valve is normal in structure. No evidence of mitral valve stenosis. Mild mitral regurgitat ion. Tricuspid Valve The tricuspid valve is normal in structure. There is no tricuspid valve stenosis. Mild tricuspid regu rgitation. The RVSP is 27.0 mmHg. Pulmonic Valve The pulmonary valve is normal in structure. There is no pulmonic valvular stenosis. There is no pulmo gemma valvular regurgitation. Great Vessels The aortic root is normal in size. The ascending aorta is normal in size. Aortic arch is normal in ca liber. IVC is normal in size and collapses >50% with inspiration. Pericardium There is no pericardial effusion. 2D Dimensions IVSD d PLAX 0.80 cm M: 0.6-1.2 Ao Root d 3.00 cm M: 3.1 - 3.7 LVPW d PLAX 0.78 cm M: 0.6 - 1.2 Ao Asc Diam d 2.77 cm M: 2.6 - 3.4 LVID d PLAX 4.38 cm M: 4.2 - 5.8 LVDs 3.27 cm M: 2.5 - 4.0 LV EF Teichholz 50.3 % FS 25.36 % LV EDV (Teich) 86.6 mL LV ESV (Teich) 43.1 mL Stroke Vol Index (Teich) 21.24 M-Mode TAPSE 2.56 cm (M/F) >1.7 Auto EF LV EDV A4C 105.6 mL LV EDV A2C 82.0 mL LV EDV BP 94.1 mL LV ESV A4C 56.9 mL LV ESV A2C 43.1 mL LV ESV BP 51.2 mL LVEF(%) A4C 46.1 % LVEF(%) A2C 47.5 % LVEF(%) BP 45.6 % LV SV A4C 48.7 ml LV SV A2C 38.9 ml LV SV BP 42.9 ml LV CO A4C 3.9 L/min LV CO A2C 3.0 L/min LV CO BP 3.5 L/min HR A4C 81.08 BPM HR A2C 78.10 BPM LV EDV Index (BP) LA Volume LA Length A4C 4.1 cm LA Length A2C 3.3 cm LA Area A4C s 9.55 cm2 LA Area A2C s 10.83 cm2 LA Vol A4C A-L 19.10 mL LA Vol A2C A-L 29.98 mL LA Vol Biplane A-L 26.4 mL LA Vol/BSA A4C A-L LA Vol/BSA A2C A-L LA Vol/BSA BP A-L 12.9 mL/m2 LA Vol A4C MOD 18.4 mL LA Vol A2C MOD 27.5 mL LA Vol BP MOD 24.6 mL RA Volume RA Area A4C 13.7 cm2 RA ESV A4C (A-L) 39.0mL RA Vol/BSA A4C A-L RA Length A4C 4.1 cm RA ESV A4C (MOD) 35.8mL LV Diastology MV E' medial 0.091 (>0.07 m/s) MV E Vmax 0.71 (0.4-1.3 m/s) MV E/E' MED 7.77 (<14) MV A Vmax 0.75 (0.4-1.3 m/s) MV E' lateral 0.092 (>0.1 m/s) E/A Ratio 0.9 MV E/E' LAT 7.66 (<14) MV E' Average 0.092 m/s MV E/E'(average) 7.72 Aortic Valve AoV Vmax 1.22 m/s LVOT Vmax 0.92 m/s AoV Peak Grad 5.9 mmHg LVOT Peak Grad 3.4 mmHg AoV Area (Vmax) 2.37 cm2 LVOT VTI 0.203 m AoV VTI 0.266 m LVOT Mean Grad 2.0 mmHg AoV Mean Janes. 0.85 m/s LVOT SV 63.41 mL AoV Mean Grad 3.3 mmHg LVOT Diam s 1.95 cm AoV Area (VTI) 2.38 cm2 AV Regurg Peak Gr. 5.93 mmHg Velocity Ratio 0.75 Mitral Valve MV DT 140 (160-240 msec) MV Vmax TIPS 0.71 m/s MV Mean Grad 1.0 (<2mmHg) MV VTI 0.206 m Pulmonary Valve PV Vmax 1.24 (0.5-1.5 m/s) RVOT Vmax 0.78 m/s PV Peak Grad 6.2 mmHg RVOT Peak Gr. 2.4 mmHg PV Mean Janes 0.80 m/s RVOT VTI 0.178 m PV Mean Grad 2.9 mmHg RVOT Mean Gr. 1.3 mmHg Tricuspid Valve RA Pressure 3.00 mmHg TR Vmax 2.45 m/s TR Peak Grad 23.9 mmHg RVSP (TR) 27.0 mmHg
== END 2024-03-07 00:57 ==
LOC: DI 00:41
PROVIDERS: PCP Family Medicine; Visit Provider Family Medicine
DX: R06.09 Other forms of dyspnea; I35.0 Nonrheumatic aortic (valve) stenosis; I36.0 Nonrheumatic tricuspid (valve) stenosis
CPT/HCPCS: 93306

== ENCOUNTER 2024-07-11 02:52 | Outpatient (CLI) | payer MEDICARE, BC, SELFPAY ==
[2024-07-11 08:44] LABS: Anion Gap 6.3 mmol/L (3-11); BUN 20 mg/dL (7-18); CO2 33.7 mmol/L (21.0-32.0); CREATININE 1.2 mg/dL (0.70-1.30); Calcium 9.3 mg/dL (8.5-10.1); Chloride 102 mmol/L (98-107); Estimated GFR 65.87 (mL/min/1.73m2); Glucose 102 mg/dL (74-106); Potassium 4.1 mmol/L (3.5-5.1); Sodium 142 mmol/L (136-145)
[2024-07-11 18:16] LABS: PSA, Screening 4.5 ng/mL (<=4.5)
[2024-07-11 18:55] LABS: Hepatitis C Ab w Rflx HCV PCR Negative (Negative)
== END 2024-07-11 02:53 | disposition home or self-care (01) ==
PROVIDERS: PCP Family Medicine; Visit Provider Family Medicine
DX: Z11.59 Encounter for screening for other viral diseases (principal); Z13.1 Encounter for screening for diabetes mellitus; Z12.5 Encounter for screening for malignant neoplasm of prostate
CPT/HCPCS: 36415; 80048; 84153; 86803

== ENCOUNTER → 2024-07-17 11:11 | Outpatient (BNVA) | payer MEDICARE, BC, SELFPAY | PROVIDERS: PCP Family Medicine; Referring Provider Family Medicine; Visit Provider Physical Therapy Assistant | DX: Z12.11 Encounter for screening for malignant neoplasm of colon (principal) ==

== ENCOUNTER 2024-08-01 07:42 | Day surgery (SDC) | payer MEDICARE, BC, SELFPAY ==
--- NOTE | 2024-07-31 21:29 | W.PM.DSUDISC ---
Date of service: 08/01/24 Discharge Plan Disposition Patient Disposition: Home Condition: Good Discharge Details Reason For Visit: Screening colonoscopy Attending Provider: Andrew Messina Primary Care Provider: Abbie Castano Home Meds and New Rx's Prescriptions: Continued nitroglycerin 0.4 mg tablet, sublingual 0.4 mg sublingual Q5M PRN (Reason: chest pain) Qty: 14 0RF Rx Instructions: Take 1 tab at onset of symptoms, repeat every 5 minutes x 3 doses if chest pain persists colchicine [Colcrys] 0.6 mg tablet See Rx Instructions PO .COMPLEX Qty: 6 3RF Rx Instructions: 2 tabs once and May repeat 1 tab 6 hours later. May use once daily until symptoms improve orally; lutein 10 mg tablet 10 mg PO DAILY Rx Instructions: give with meal/snack aspirin 81 mg tablet,delayed release (DR/EC) 81 mg PO DAILY Qty: 90 3RF atorvastatin 20 mg tablet 20 mg PO DAILY Qty: 90 3RF lisinopril 10 mg tablet 10 mg PO DAILY Qty: 90 3RF chlorthalidone 25 mg tablet 25 mg PO DAILY Qty: 90 3RF celecoxib 200 mg capsule 200 mg PO BID Qty: 180 3RF phentermine 37.5 mg capsule 37.5 mg PO DAILY Qty: 30 5RF Rx Instructions: must administer 30 minutes before or 1-2 hours after breakfast Discontinued bisacodyl [Dulcolax (bisacodyl)] 5 mg tablet,delayed release (DR/EC) 5 mg PO ONCE Qty: 4 0RF Rx Instructions: Take per colonoscopy instructions provided by ordering providers office polyethylene glycol 3350 17 gram/dose powder 17 g PO ONCE Qty: 238 0RF Rx Instructions: Take per colonoscopy instructions provided by ordering providers office Discharge Instructions Instructions: Colon polyps Additional Instructions: Rex, is very nice meeting you today, and I hope you make a quick recovery after the procedure. Things went very smoothly. Your prep was excellent and I could see everything fine. I did find, and removed 2 small polyps today. These are certainly nothing to worry about. I will send these off to the pathologist for the review, and once we know the nature of these polyps, my office will be in touch with the recommendation of your next screening colonoscopy. If you need anything, or have any questions at all, please do not hesitate to ask. 1. If tolerated, consume a soft, low fiber diet for 1-2 days. [address] Do not drive, drink alcohol, operate machinery, make critical decisions, or do activities that require coordination or balance for 24 hours. 3. Because air was put into your colon during the procedure, expelling air from your rectum (passing gas or farting) is normal. 4. You may not have a bowel movement for 1-3 days because of the colonoscopy prep. This is normal. 5. Go directly to the emergency room if you notice any of the following: Develop chills (warm to touch), or if you have a thermometer and your temperature is above 101 Difficulty breathing or difficultly swallowing Persistent vomiting Severe abdominal pain, other than gas cramps Severe chest pain Black, tarry stools Any bleeding ? exceeding one tablespoon 6. Call your physician if the site where your intravenous was started becomes red, swollen, painful, and warm to touch. 7. Your physician has reviewed your pre-procedure medications. Please continue to take those medications as previously ordered. You will be given specific information/education regarding any changes to your medications before leaving. Stand Alone Forms: Anesthesia Discharge InstChing Romero (DSU) Activity:: Activity as Tolerated Diet:: As Tolerated Discharge Orders Discharge Orders: Discharge Order (Routine); Ordered 07/31/24 Ordered By: Andrew Messina DS: Diagnosis Discharge Diagnosis (1) Encounter for screening colonoscopy: Status: Acute Asessment and Plan: Follow-up on polypectomy results
--- NOTE | 2024-07-31 21:30 | COLE_ITS ---
Date of service: 08/01/24 Time of Service: 10:03 Colonoscopy Report Date of procedure: 08/01/24 Pre-op diagnosis general: Screening colonoscopy Post-op diagnosis procedure note: other (Colon polyps) Procedure: Colonoscopy with polypectomy Surgeon: Andrew Messina Anesthesia Type: General:No Airway Estimated blood loss (mL): 5 Pathology: other (0.25 cm polyp at 85 cm, 0.25 cm polyp at 45 cm) Complications: None Disposition: same day Indications: Tunde is a 69-year-old male with a history of adenomatous polyps who is here for his next screening colonoscopy Prep: Miralax/Dulcolax Procedure Start Time: 09:35 Procedure End Time: 09:53 Retraction Time: 12 Findings: 0.25 cm polyp at 85 cm, 0.25 cm polyp at 45 cm Procedure Description: After the induction of anesthesia, and with the patient in left lateral decubitus position, I began by performing an external anorectal exam.? Perineum and skin were normal, as was the anal verge.? There was no evidence of external hemorrhoids.? Next, I performed a digital rectal exam.? I did not appreciate any abnormal findings.? Next, I advanced a colonoscope into the rectal vault.? I performed retroflexion.? This appeared normal.? Using insufflation, I then advanced the colonoscope beyond the rectal folds and into the sigmoid colon before advancing towards the cecum.? The quality of the prep was excellent.? The scope was noted to be in the cecum by identification of the ileocecal valve and appendiceal orifice.? I then began withdrawing the colonoscope using repeated irrigation as necessary for full evaluation of the colonic mucosa. Around 85 cm from the anal verge was a 0.25 cm pedunculated polyp. This was removed with cold forceps. There was minimal bleeding. ?Another small polyp was found around 45 cm from the anal verge. This was also about 0.25 cm. This was also a bit pedunculated, and easily removed with cold forceps with minimal bleeding. Once the scope was withdrawn to the level of the rectum, great care was taken to examine portions of the rectal folds.? Finally, the scope was withdrawn and the patient was brought to the same-day surgery recovery unit as the anesthetic wore off. ?The findings and instructions were shared with the patient prior to discharge. [place] Bowel Prep [place] Bowel Prep Right Colon: 3 Left Colon: 3 Transverse Colon: 3 Total Score: 9
[2024-08-01 08:00] VITALS: BP 136/77; PULSE 73; RESP 16; TEMP 36.3; O2SAT 99
[2024-08-01] MEDS: Lactated Ringers 1,000 ML 80 ML IV (08:30)
--- NOTE | 2024-08-01 09:17 | ANES.PREOP_ITS ---
General Info Date of Service Date Performed: 08/01/24 Height: 5 ft 9 in Weight: 87.906 kg Body Mass Index (BMI): 28.6 Surgical Procedure: Operation Date: 08/01/24 09:05 Proposed Procedure Side Surgeon alena Messina MD Meds Allergies and Home Medications Allergies Allergy/AdvReac Type Severity Reaction Status Date / Time No Known Allergies Allergy Verified 08/01/24 07:52 Home Medication ?Medication ?Instructions ?Recorded aspirin 81 mg tablet,delayed 81 mg PO DAILY #90 tabs 11/02/21 release chlorthalidone 25 mg tablet 25 mg PO DAILY #90 tab-caps 09/25/23 lisinopril 10 mg tablet 10 mg PO DAILY #90 tab-caps 09/25/23 celecoxib 200 mg capsule 200 mg PO BID pain #180 caps 09/27/23 nitroglycerin 0.4 mg sublingual 0.4 mg sublingual Q5M PRN chest 01/02/24 tablet pain #14 tabs colchicine 0.6 mg tablet (Colcrys) See Rx Instructions PO .COMPLEX #6 02/29/24 tabs lutein 10 mg tablet 10 mg PO DAILY 02/29/24 atorvastatin 20 mg tablet 20 mg PO DAILY #90 tabs 07/16/24 phentermine 37.5 mg capsule 37.5 mg PO DAILY #30 caps 07/28/24 Current Visit Medications: Current Medications Generic Name Dose Route Start Last Admin Trade Name Freq PRN Reason Stop Dose Admin Ringer's Solution 1,000 mls @ 80 mls/hr 08/01/24 06:00 08/01/24 08:30 IV 08/01/24 23:59 80 mls/hr INFUSION ALBERTO Administration IV Miscellaneous Supplies 1 each 08/01/24 06:00 Iv Access IV 08/01/24 23:59 DIRECTED ALBERTO Ondansetron HCl 4 mg 07/31/24 21:31 Ondansetron 4 Mg/2 Ml Vial IVP 08/30/24 21:30 Q4H PRN PRN Nausea / Vomiting Sodium Chloride 0 ml 08/01/24 06:00 Normal Saline Flush 10 Ml Syr IV 08/01/24 23:59 PRN PRN Sodium Chloride 0 ml 08/01/24 06:00 Normal Saline 10 Ml Vial IJ 08/01/24 23:59 DIRECTED PRN Sterile Water 0 ml 08/01/24 06:00 Water,Injection,Sterile 10 Ml Vial IJ 08/01/24 23:59 DIRECTED PRN PFSH Active Problems Active Problems: Problem Status Onset Code Encounter for screening colonoscopy Acute Z12.11 Strain of insertion of tendon of right hamstring muscle Acute S76.311A Trochanteric bursitis, left hip Acute M70.62 Hip pain, left Acute M25.552 Gout Chronic M10.9 Essential hypertension Chronic I10 Bilateral shoulder pain Chronic M25.511, M25.512 DDD (degenerative disc disease), cervical Chronic M50.30 Hyperlipemia, mixed Chronic E78.2 Onychocryptosis Chronic L60.0 Obstructive sleep apnea Chronic G47.33 Obesity with serious comorbidity Acute E66.9 Medical History Medical History Dyspnea on effort with h/o tob use, second hand smoke exposure; negative NM stress test 01/2024 Right kidney stone Bursitis of right shoulder Depo-Medrol injection: 08/06/2020 Prolapsed lumbosacral intervertebral disc (01/16/13) Sessile colonic polyp (03/17/16) normal colonoscopy in 2019 Hemorrhoids intermittent, not currently active Surgical History Surgical History Status post total hip replacement, left (10/16/19) Normal colonoscopy History of spinal surgery Tobacco Smoking/Tobacco Use Status: Former Tobacco Use Passive smoking exposure: No Second hand exposure: Yes Alcohol Alcohol Intake: current Alcohol intake frequency: 0-2 drinks per day Alcohol type: hard liquor Substance Use Substance use: Never Substance use type: does not use Vital Signs and Lab Results Vital Signs Most Recent Vital Signs in EMR: Most Recent Vital Signs Temp Pulse Resp BP Pulse Ox 36.3 C L 73 16 136/77 99 08/01/24 08:00 08/01/24 08:00 08/01/24 08:00 08/01/24 08:00 08/01/24 08:00 Lab Results Blood Type / Crossmatch: 2 No Data to Display Complete Blood Count: 2 No Data to Display Complete Metabolic Panel: 2 Sodium 142 mmol/L (136-145) 07/11/24 08:12 Potassium 4.1 mmol/L (3.5-5.1) 07/11/24 08:12 Chloride 102 mmol/L (98-107) 07/11/24 08:12 Carbon Dioxide 33.7 mmol/L (21.0-32.0) H 07/11/24 08:12 BUN 20 mg/dL (7-18) H 07/11/24 08:12 Creatinine 1.2 mg/dL (0.70-1.30) 07/11/24 08:12 Est GFR (CKD-EPI 2020) 65.87 (mL/min/1.73m2) 07/11/24 08:12 Calcium 9.3 mg/dL (8.5-10.1) 07/11/24 08:12 Glucose 102 mg/dL (74-106) 07/11/24 08:12 Liver Function Panel: 2 No Data to Display Coagulation Panel: 2 No Data to Display Cardiac Panel: 2 No Data to Display Arterial Blood Gas: 2 No Data to Display Venous Blood Gas: 2 No Data to Display Pancreas Panel: 2 No Data to Display Thyroid Panel: 2 No Data to Display Infectious Disease: 2 Hepatitis C Antibody Negative (Negative) 07/11/24 08:12 Blood Cultures: 2 No Data to Display Toxicology Panel: 2 No Data to Display Imaging and Studies Imaging and Studies Study information below may be from another EMR and interpreted by another provider. Please see original notes in EMR for more complete details. EKG Summary: EKG PATIENT NAME: Tunde Starr Sr UNIT #: [id number] ORDERING PROVIDER: Sweetie Ponce COOK CHEF PRIMARY CARE PROVIDER: ABBIE CASTANO MD DATE/TIME OF SERVICE: 01/02/24 1313 : 1955 PERFORMING LOCATION: [facility] APPROVED REPORT Exam: Resting ECG Reason for Exam: palpitations Patient Location: O HR:66 bpm ECG Measurements Heart Rate 66 AXIS MA 181 P 11 QRSd 94 QRS -59 QT 419 T4 QTc 439 Conclusion Sinus rhythm...normal P axis, V-rate 50- 99 LAFB Poor R wave progression - <Electronically signed by JANELLE CHRISTOPHER MD in OV> E-Sign Date: 01/03/24 E-Sign Time: 08 Stress Test Summary: Patient Name: Tunde Starr Sr Unit #: [id number] Loc: Ordering Provider: Sweetie Ponce COOK CHEF Status: [facility] Primary Care Provider: Abbie Castano M.D. Date of Exam: 01/31/24 Sex: M Admission Date: 01/31/24 : 1955 Age: 69 APPROVED REPORT Exam: Pharmacologic Patient Location: Out-Patient Room/Bed: Stress Nurse: Isael Craig RN Ordering Provider:SWEETIE HOLLINS, Contact Number: [phone] BMI: 31.31 Baseline Rhythm: Sinus Bradycardia. Comment: Left Bundle Branch Block. Indications: Chest Pain and SOB on Exertion; Anginal Pain. Medical History Medical History: Family Hx; Hyperlipidemia; Hypertension; Obstructive Sleep Apnea. Cardiac Medications: Aspirin; Atorvastatin; Celecoxib; Chlorthalidone; Colchine; Lisinopril; Nitroglycerin. Allergies: None. Cardiac Risk Factors: Family Hx; Hyperlipidemia; Hypertension. Previous Cardiac Procedures: None. Pretest Chest Pain Characteristics: None. Exercise History: Physically active. Physical Disabilities: None. Lung Sounds: Clear bilaterally throughout, anterior and posterior. Heart Sounds: S1 and S2 auscultated. Stress Test Details Test: Pharmacologic stress was paired with low level exercise. Reason for pharmacologic stress test: LBBB. Nuclear Acquisition: Rest Tc-99m/Stress Tc-99m 1 day Rest Isotope: Tc-99m Sestamibi. Dose: 10.2 Date: 01/31/2024 Injection Time: 0840 Stress Isotope: Tc-99m Sestamibi. Dose: 31.4 Date: 01/31/2024 Injection Time: 1005 HR Resting HR Supine: 59 bpmMax Heart Rate (APMHR): 152.915509 bpm Resting HR Standin bpmTarget HR (85% APMHR): 129.101019 bpm Max HR Achieved: 108 bpm % of APMHR: 71.05 Recovery HR: 67 bpm BP Resting BP Supine: 142/82 mmHg Resting BP Standin/80 mmHg Max BP: 162/78 mmHg Recovery BP: 144/78 mmHg ECG Resting ECG: Sinus Bradycardia w/ a LBBB. Ectopy: None. Stress ECG: Sinus Tachycardia w/ a LBBB. ST Change: Nondiagnostic low heart rate; Nondiagnostic LBBB. Arrhythmia: None. Recovery ECG: Sinus Rhythm w/ a LBBB. Recovery ST Change: Nondiagnostic low heart rate; Nondiagnostic LBBB. Recovery Arrhythmia: Occasional PVC's. Clinical Stress Symptoms: Dyspnea. Exercise duration: 04 min00 sec Exercise capacity: 1.92 METs Angina Score: None Rate Pressure Product: 19070 Stress ECG Conclusion 1. Resting EKG showed left axis and an incomplete LBBB 2. Patient underwent testing using pharmacologic stress with with regadenoson. With low-level exercise 3. Peak heart rate achieved was 71% of predicted for age 4. The electrocardiographic portion of the test was nondiagnostic 5. See MPI report March Treadmill Score is which is Moderate risk. Stress Test Summary [id number] Wdqjvlfh40868/8097 1 min post Lexiscan [id number]. c/o moderate shortness of breath. 3 min post Lexiscan [id number]/7898Pt. c/o mild shortness of breath. 6 min post Lexiscan [id number]/7896Pt. states that all symptoms have resolved. Dr. Christopher was consulted prior to starting the stress test, as pt.'s EKG was showing a left bundle branch block. Per Dr. Christopher, it was safe to proceed with a walking lexiscan stress test, which was performed. Pt. tolerated the stress test well. Pt. was conversing pleasantly with nursing staff upon leaving the Stress Lab. Pt. left ambulatory in no apparent distress. MPI Conclusion Myocardial perfusion is normal. There is no ischemia or evidence of prior infarction Calculated EF is 45%. Visually ejection fraction appears within the range of normal and wall motion is normal Radiologist Interpretation Radiologist agrees with Senior Recruitment Consultant's Interpretation. Radiologist Interpretation by: Rakan Hughes MD Interpretation Date/Time: 02/01/2024 17:41:33 Ordered By: Sweetie Ponce NP CC: MARA POTTER,BRYAN Dictated By: Janelle Christopher M.D. 01/31/24 1049 <Electronically signed by Janelle Christopher M.D. in OV> 02/04/24 0920 Transcribed By: Janelle Christopher MD 01/31/241048 This is privileged, confidential information intended only for the provider named. Any use or distribution by any person other than this provider is strictly prohibited. If you receive this report in error, please notify us immediately at [phone] and return the original report to us at the address above. Thank-you. Echocardiogram Summary: Patient Name: Tunde Starr Unit #: [id number] Loc: Ordering Provider: Abbie Castano M.D. Status: [facility] Primary Care Provider: Abbie Castano M.D. Date of Exam: 03/07/24 Sex: M Admission Date: 03/07/24 : 1955 Age: 69 APPROVED REPORT EXAM: Comprehensive 2D, Doppler, and color-flow Echocardiogram Patient Location: Out-Patient [employer] Manager: Manjeet Rendon RDCS (AE) Indications: Ongoing dyspnea, EF 45% on stress test, heart murmur Conclusion Normal left ventricular wall thickness and chamber size. Ejection fraction is 55%. Wall motion is normal Normal right ventricular size and function Both atria are normal in size Aortic valve is trileaflet and mildly sclerotic There is mild mitral and tricuspid regurgitation Estimated right ventricular systolic pressure is 27 mmHg Wall motion Left Ventricle The left ventricle is normal size. The left ventricular systolic function is normal. The left ventricular ejection fraction is within the normal range. There is normal left ventricular wall thickness. There are no segmental wall motion abnormalities There is no ventricular septal defect visualized. EF 55% Right Ventricle The right ventricle is normal size. The right ventricular systolic function is normal. Atria The left atrium size is normal. The right atrium size is normal. The interatrial septum is intact with no evidence for an atrial septal defect. Aortic Valve The aortic valve is mildly sclerotic Aortic valve is trileaflet. There is no aortic valvular stenosis. No aortic regurgitation is present. Mitral Valve The mitral valve is normal in structure. No evidence of mitral valve stenosis. Mild mitral regurgitation. Tricuspid Valve The tricuspid valve is normal in structure. There is no tricuspid valve stenosis. Mild tricuspid regurgitation. The RVSP is 27.0 mmHg. Pulmonic Valve The pulmonary valve is normal in structure. There is no pulmonic valvular stenosis. There is no pulmonic valvular regurgitation. Great Vessels The aortic root is normal in size. The ascending aorta is normal in size. Aortic arch is normal in caliber. IVC is normal in size and collapses >50% with inspiration. Pericardium There is no pericardial effusion. 2D Dimensions IVSD d PLAX 0.80 cm M: 0.6-1.2Ao Root d 3.00 cm M: 3.1 - 3.7 LVPW d PLAX 0.78 cm M: 0.6 - 1.2Ao Asc Diam d 2.77 cm M: 2.6 - 3.4 LVID d PLAX 4.38 cm M: 4.2 - 5.8 LVDs 3.27 cm M: 2.5 - 4.0 LV EF Teichholz 50.3 % FS25.36 % LV EDV (Teich)86.6 mL LV ESV (Teich)43.1 mL Stroke Vol Index (Teich)21.24 M-Mode TAPSE 2.56 cm (M/F) >1.7 Auto EF LV EDV C5W649.6 mLLV EDV A2C82.0 mLLV EDV BP94.1 mL LV ESV A4C56.9 mLLV ESV A2C43.1 mLLV ESV BP51.2 mL LVEF(%) A4C46.1 %LVEF(%) A2C47.5 %LVEF(%) BP45.6 % LV SV A4C48.7 mlLV SV A2C38.9 mlLV SV BP42.9 ml LV CO A4C3.9 L/minLV CO A2C3.0 L/minLV CO BP3.5 L/min HR A4C81.08 BPMHR A2C78.10 BPMLV EDV Index (BP) LA Volume LA Length A4C4.1 cmLA Length A2C3.3 cm LA Area A4C s 9.55 cm2LA Area A2C s 10.83 cm2 LA Vol A4C A-L19.10 mLLA Vol A2C A-L29.98 mLLA Vol Biplane A-L26.4 mL LA Vol/BSA A4C A-LLA Vol/BSA A2C A-LLA Vol/BSA BP A-L 12.9 mL/m2 LA Vol A4C MOD18.4 mLLA Vol A2C MOD27.5 mLLA Vol BP MOD24.6 mL RA Volume RA Area A4C13.7 cm2RA ESV A4C (A-L)39.0mLRA Vol/BSA A4C A-L RA Length A4C4.1 cmRA ESV A4C (MOD)35.8mL LV Diastology MV E' medial0.091 (>0.07 m/s)MV E Vmax 0.71 (0.4-1.3 m/s) MV E/E' MED7.77 (<14)MV A Vmax 0.75 (0.4-1.3 m/s) MV E' lateral0.092 (>0.1 m/s)E/A Ratio 0.9 MV E/E' LAT7.66 (<14) MV E' Average0.092 m/s MV E/E'(average)7.72 Aortic Valve AoV Vmax1.22 m/sLVOT Vmax 0.92 m/s AoV Peak Grad5.9 mmHgLVOT Peak Grad 3.4 mmHg AoV Area (Vmax)2.37 qm3QDLT VTI0.203 m AoV VTI0.266 mLVOT Mean Grad 2.0 mmHg AoV Mean Janes.0.85 m/sLVOT SV 63.41 mL AoV Mean Grad3.3 mmHgLVOT Diam s 1.95 cm AoV Area (VTI)2.38 cm2AV Regurg Peak Gr.5.93 mmHg Velocity Ratio 0.75 Mitral Valve MV DT 140 (160-240 msec) MV Vmax TIPS 0.71 m/s MV Mean Grad 1.0 (<2mmHg) MV VTI 0.206 m Pulmonary Valve PV Vmax 1.24 (0.5-1.5 m/s)RVOT Vmax 0.78 m/s PV Peak Grad 6.2 mmHgRVOT Peak Gr.2.4 mmHg PV Mean Vel0.80 m/sRVOT VTI0.178 m PV Mean Grad 2.9 mmHgRVOT Mean Gr.1.3 mmHg Tricuspid Valve RA Pressure 3.00 mmHgTR Vmax 2.45 m/s TR Peak Grad 23.9 mmHg RVSP (TR) 27.0 mmHg Ordered By: Abbie Castano M.D. CC: Dictated By: Janelle Christopher M.D. 03/07/2443 <Electronically signed by Janelle Christopher M.D. in OV> 03/07/2459 Transcribed By: Janelle Christopher MD 03/07/24942 This is privileged, confidential information intended only for the provider named. Any use or distribution by any person other than this provider is strictly prohibited. If you receive this report in error, please notify us immediately at [phone] and return the original report to us at the address above. Thank-you. Pulmonary Function Summary: Pulmonary Function Test PATIENT NAME: Tunde Starr UNIT #: [id number] ADMITTING PROVIDER: Demetra Lewis M.D. PRIMARY CARE PROVIDER: ABBIE CASTANO MD DATE OF ADMIT: 03/04/24 : 1955 Date of service: 03/04/24 Time of Service: 13:01 Pulmonary Function Test Result Indications: Dyspnea Interpretation Spirometry: No airflow limitation. No bronchodilator response Lung Volumes: Normal lung volumes Diffusion Capacity: Normal diffusion Airway Pressure: Normal airways resistance Impression Normal pulmonary function testing Clinical Correlation therefore is recommended. cc: Dictated by: DEMETRA LEWIS MD Dictated: 03/13/24 Time: 1207 <Electronically signed by Demetra Lewis M.D.> Date: 03/13/24 120 Date: Date: Transcribed Date: 03/13/24 Transcribed Time: 120 By: CHRISTI This is privileged, confidential information, intended only for the provider named. Any use or distribution by any person other than this provider is strictly prohibited. If you receive this report in error, please notify us immediately at [phone] and return the original report to us at the address above. Thank you. Anesthesia Assessment and Plan Anesthesia History Personal History: No History of Anesthesia Complications Family History: No Family History of Anesthesia Complications Exercise Tolerance Exercise Tolerance: Metabolic Equivalents>4 Pertinent Negatives Pertinent Negatives: No Symptoms of GERD and No History of CVA/TIA Cardiac & Pulmonary Exam Cardiac Exam: Normal S1/S2 Heart Sounds Pulmonary Exam: Clear Bilateral Breath Sounds Implantable Cardiac Device Does patient have a Pacemaker or an ICD?: No Airway Exam Known Difficult Airway: No Mallampati Class: 2 Mouth Opening: Normal (> 3cm) Thyromental Distance: Greater than 3 cm Neck Range of Motion: Full ROM Neck Circumference: Normal Teeth Condition: Normal Dentition Tooth Numberin 1. chipped tooth ASA Classification ASA Score: ASA 2 Emergency Case?: No NPO Status NPO Status: NPO Clears >2 hours, Solids >8 hours Anesthesia Plan Resuscitation Status: Full Code Anesthesia Technique: General Anesthesia Airway Planned: Natural Airway Monitors Used: Standard Monitors
[2024-08-01 09:28] VITALS: BMI 28.6
--- NOTE | 2024-08-01 09:50 | BOWEL_PTH ---
PATIENT: Tunde Starr LOC: [facility] U#:[id number] AGE/SX: 69/M ROOM: RE08/01/[address]: Andrew Messina MD : 1955 BED: DIS: 08/01/2024 SPEC #: [id number] RECD: 08/01/24 12:24 STATUS: KIM REQ #: [id number] MARILIN: 08/01/24 09:[address]: Andrew Messina DEPT: Surgical Specimen RECD BY: Nedra Albright ENTERED: 08/01/24 12:27 SP TYPE: Bowel OTHR DR: Abbie Castano Tissues: 1 - BIOPSY BOWEL 2 - BIOPSY BOWEL Procedures: GROSS AND MICRO LEVEL 4 Comments: [id number]
[2024-08-01 09:56] VITALS: BP 131/70; PULSE 74; RESP 18; TEMP 36.6; O2SAT 96
--- NOTE | 2024-08-01 10:02 | W.ANESPOSTOP ---
Postoperative Evaluation Date, Time and Location Date Performed: 08/01/24 Time Performed: 09:56 Patient Location: Day Surgery Unit Vital Signs Most Recent Imported Vital Signs: Most Recent Vital Signs Temp Pulse Resp BP Pulse Ox 36.6 C 74 18 131/70 96 08/01/24 09:56 08/01/24 09:56 08/01/24 09:56 08/01/24 09:56 08/01/24 09:56 Pain Score Most Recent Pain Score: Most Recent Pain Score Pain Level 0 08/01/24 09:56 Assessment Mental Status: Awake (Alert & Oriented to Patient Baseline) Airway and Respiratory Function: Patent airway with normal (patient baseline) respiratory exam Cardiovascular Function: Hemodynamically Stable Hydration Status: Adequately Hydrated Nausea & Vomiting: No Nausea or Vomiting Pain: Pt. Denies Any Pain Peripheral Nerve Block: Other (Local by Dr. Bernard)
[2024-08-01 10:22] VITALS: BP 130/65; PULSE 69; RESP 18; TEMP 36.6; O2SAT 98
== END 2024-08-01 10:35 | disposition home or self-care (01) ==
LOC: SUR 07:42
PROVIDERS: PCP Family Medicine; Visit Provider Surgery
PROC: 0DJD8ZZ Inspection of Lower Intestinal Tract, Via Natural or Artificial Opening Endoscopic (ICD-10-PCS; CPT 45378; principal; 2024-08-01 09:00)
DX: Z12.11 Encounter for screening for malignant neoplasm of colon (principal); D12.3 Benign neoplasm of transverse colon; I10 Essential (primary) hypertension; G47.33 Obstructive sleep apnea (adult) (pediatric)
CPT/HCPCS: 45380; 88305; J2704

== ENCOUNTER 2025-01-08 03:32 | Outpatient (CLI) | payer MEDICARE, BC, SELFPAY ==
[2025-01-08 09:02] LABS: ALT 31 U/L (16-63); AST 21 U/L (15-37); Albumin 3.6 g/dL (3.4-5.0); Alkaline Phosphatase 68 U/L (46-116); Anion Gap 5.2 mmol/L (3-11); BUN 21 mg/dL (7-18); Bilirubin, Total 0.7 mg/dL (0.2-1.0); CO2 33.8 mmol/L (21.0-32.0); Calcium 8.7 mg/dL (8.5-10.1); Chloride 103 mmol/L (98-107); Estimated GFR 65.87 (mL/min/1.73m2); Glucose 96 mg/dL (74-106); Potassium 3.8 mmol/L (3.5-5.1); Sodium 142 mmol/L (136-145); Total Protein 6.9 g/dL (6.4-8.2); Uric Acid 8.2 mg/dL (3.5-7.2)
[2025-01-08 09:16] LABS: Calculated LDL 83 mg/dL (<100); Cholesterol 162 mg/dL (<200); HDL Cholesterol 65 mg/dL (>or=40); Triglyceride 72 mg/dL (<150)
== END 2025-01-08 03:33 | disposition home or self-care (01) ==
LOC: LBO 03:32
PROVIDERS: PCP Family Medicine; Visit Provider Family Medicine
DX: Z13.6 Encounter for screening for cardiovascular disorders (principal); E78.2 Mixed hyperlipidemia; I10 Essential (primary) hypertension; M10.072 Idiopathic gout, left ankle and foot
CPT/HCPCS: 36415; 80053; 80061; 84550

== ENCOUNTER 2025-03-10 00:19 | Outpatient (CLI) | payer MEDICARE, BC, SELFPAY ==
[2025-03-10 09:26] LABS: Anion Gap 6.6 mmol/L (3-11); BUN 20 mg/dL (9-23); CO2 30.4 mmol/L (20.0-31.0); Calcium 9.1 mg/dL (8.3-10.6); Chloride 106 mmol/L (98-107); Glucose 94 mg/dL (74-106); Potassium 4.7 mmol/L (3.5-5.1); Sodium 143 mmol/L (136-145)
== END 2025-03-10 00:20 | disposition home or self-care (01) ==
LOC: LBO 00:19
PROVIDERS: PCP Family Medicine; Visit Provider Family Medicine
DX: I10 Essential (primary) hypertension (principal)
CPT/HCPCS: 36415; 80048